=== PATIENT | male | born 1940 | race Caucasian/White ===

== ENCOUNTER 2020-06-03 08:46 | Outpatient (REF) | payer MEDICARE, SELFPAY ==
--- NOTE | 2020-06-03 | US_ITS ---
EXAMINATION: US RETROPERITONEAL LIMITED (AORTA) CLINICAL INFORMATION: Known AAA, stent placement. COMPARISON: Abdominal ultrasound dated 02/10/2016 TECHNIQUE: Carrasco-scale, color Doppler and spectral Doppler evaluation of the abdominal aorta. FINDINGS: The aorta is normal. The measurements of the aorta in maximum AP and transverse dimensions respectively are as follows: Proximal: 2.3 x 2.6 cm. Mid: 2.0 x 2.0 cm. Distal: 1.8 x 2.6 cm. PSV: 99.4 cm/s. The measurements of the common iliac arteries in maximum AP and TRV dimensions are as follows: AP: Right: 1.2 cm. Left: 1.3 cm. TRANS: Right: 1.5 cm. Left: 1.5 cm. IMPRESSION: Mild dilatation of distal abdominal aorta measuring 2.6 cm in transverse dimension. There is a small stent in the distal abdominal aorta which appears patent.
== END 2020-06-03 08:47 | disposition home or self-care (01) ==
LOC: HO.US 08:46
PROVIDERS: PCP Internal Medicine; Visit Provider Internal Medicine
DX: I71.4 Abdominal aortic aneurysm, without rupture (principal); Z95.5 Presence of coronary angioplasty implant and graft
CPT/HCPCS: 76775

== ENCOUNTER → 2020-06-08 08:19 | Outpatient (REF) | payer MEDICARE, SELFPAY ==
--- NOTE | 2020-06-08 08:30 | CA_ITS ---
Acquisition Time: 2020-06-08 08:38:25 Total Exercise Time: 00:05:59 Test Indications: Screening for CAD Medications: ASA ATORVASTATIN DILTIAZEM ER Protocol: RICK Max HR: 137 BPM 98% of Pred: 139 BPM Max BP: 162/084 mmHG Max Work Load: 7.0 METS Exercise stress test using Rick protocol. total of 5 min 59 sec. METs . 7. Pt tolerated well. Denies any anginal sx. EKG with occ. PVC's during exercise without any sx. No ischemic changes seen during exercise or in recovery. Normotensive response to exercise. Test reviewed with Dr. Ruelas. Referred By: Gee Lacey Overread By: Casi Gardner
== END ==
LOC: HO.CARD 08:19
PROVIDERS: Visit Provider Internal Medicine
DX: I71.3 Abdominal aortic aneurysm, ruptured (principal)
CPT/HCPCS: 93017

== ENCOUNTER → 2020-07-14 10:05 | Outpatient (REF) | payer MEDICARE, SELFPAY ==
--- NOTE | 2020-07-14 10:30 | CA_ITS ---
Transthoracic Echocardiogram Patient (Last, First, Middle): Westley Hummel F Gender: Male Date of : 1940 Age: 80 Procedure Date: 07/14/2020 Procedure Type: Transthoracic Echocardiogram Location: OP Height: 175.26 cm Weight: 71.67 kg BSA: 1.87 m2 Heart Rate: bpm BP: 118 / 60 mmHg Wire Preparation Machine Tender: Referring MD: Shakeel Stokes MD Yarn Worker: Shakeel Stokes MD Symptoms: I48.0 PAF I10 HTN Study Quality: Fair ECG Rhythm: Sinus Conclusions: - 1. Normal LV systolic function with impaired relaxation filling pattern 2. Mild aortic regurgitation 3. Normal RV systolic pressure 4. No pericardial effusion Findings Left Ventricle Normal left ventricular size and systolic function. There is mildly increased left ventricular wall thickness. The visually estimated ejection fraction is between 60-65%. Spectral Doppler is indicative of an impaired relaxation filling pattern. E/E prime ratio is between 8 and 15 consistent with indeterminate filling pressures. Right Ventricle Normal right ventricular cavity size and systolic function. Atria Both atria are normal in size. There is no evidence of interatrial shunt. Aortic Valve The aortic valve structure and function is likely normal. There is mild calcification of the aortic valve. There is no aortic valve stenosis. There is mild aortic valve regurgitation. Mitral Valve There is mild anterior and posterior mitral leaflet thickening. There is trace mitral valve regurgitation. There is no mitral valve stenosis. Pulmonic Valve The pulmonic valve was not well visualized. Tricuspid Valve Likely normal tricuspid valve structure and function. There is trace tricuspid valve regurgitation. The right ventricular systolic pressure is normal. The right ventricular systolic pressure is 17 mmHg. Normal right atrial pressure. There is no evidence of pulmonary hypertension. Great Vessels All visible segments of the aorta are normal in size. The pulmonary artery was not well visualized. Venous The inferior vena cava is normal in size and collapses greater than 50% with inspiration. Pericardium/Pleural There is no evidence of pericardial effusion. Prior Study Comparison No previous study in the last 5 years for comparison Measurements 2D Linear Measurements IVSd: 1.24 0.6-0.9/0.6-1.0 cm LVIDd: 3.63 3.9-5.3/4.2-5.9 cm LVIDd Index: 1.94 2.4-3.2/2.2-3.1 cm/m2 LVIDs: 2.16 2.0-3.6 cm LVPWd: 1.26 0.7-1.1 cm Ao Root: 3.50 2.1-3.5 cm LA Diam: 3.50 2.7-3.8/3.0-4.0 cm LAIDs Index: 1.87 1.5-2.3 cm/m2 LV Mass: 189.81 67-162/88-224 g LV Mass Index: 101.51 43-95/49-115 g/m2 LVOT Diam: 2.40 3.0+(-)1.3 cm Mitral Valve MV Pk E: 0.57 MV PK A: 0.78 MV Decel Time: 204.00 E/A: 0.70 E'Lateral: 7.25 E'Medial: 5.22 E/E' Med: 10.90 E/E' Lat: 7.80 PHT: 60.00 MVA PHT: 3.67 Decel Bullock: 2.78 Aortic Valve AoV Pk Sean: 1.55 AoV Mn Sean: 1.12 AoV VTI: 0.34 AoV Pk Grad: 10.00 Aov Mn Grad: 6.00 SONA Cont.VTI: 3.87 LVOT LVOT Pk Sean: 1.30 LVOT Mn Sean: 0.83 LVOT VTI: 0.29 LVOT Pk Grad: 7.00 LVOT Mn Grad: 3.00 LVOT Diam: 2.40 LVOT Area: 4.52 Diastolic Function MV Pk E: 0.57 MV Pk A: 0.78 E/A: 0.70 E'Medial: 5.22 E/E' Med: 10.90 E' Laterial: 7.25 E/E' Lat: 7.80 Tricuspid Valve TR Pk Sean: 1.86 TR Pk Grad: 14.00 RA Press: 3.00 RVSP: 17.00 Great Vessels Aorta Ao Root-2D: 3.50 2.0-3.7 cm Pulmonary Valve PV Pk Sean: 0.84 Peak PV Grad: 3.00 Updated in Other Vendor System with Status of Final Shakeel Stokes MD electronically signed on 07/15/2020 4:30:28 PM with status of Final
== END ==
LOC: HO.CARD 10:05
PROVIDERS: Visit Provider Internal Medicine Cardiovascular Disease
DX: I48.0 Paroxysmal atrial fibrillation (principal); I10 Essential (primary) hypertension
CPT/HCPCS: 93306

== ENCOUNTER 2020-08-24 10:40 | Outpatient (REF) | payer MEDICARE, SELFPAY ==
[2020-08-24 14:32] LABS: Estimated Average Glucose 111 mg/dL; Hemoglobin A1c % 5.5 %
[2020-08-24 14:35] LABS: Alanine Aminotransferase 18 U/L (0-40); Albumin Level 4.5 g/dL (3.5-5.0); Alkaline Phosphatase 66 U/L (39-117); Aspartate Amino Transferase 20 U/L (5-37); Bilirubin Direct 0.3 mg/dL (0.0-0.5); Bilirubin Total 0.7 mg/dL (0.0-1.0); Cholesterol 144 mg/dL; Glucose Fasting 98 mg/dL (60-99); HDL Cholesterol 39 mg/dL; LDL Cholesterol Calculated 85 mg/dl; Total Protein 7.7 g/dL (6.5-8.0); Triglycerides 100 mg/dL
[2020-08-24 16:52] LABS: Reflex LDLD? No
== END 2020-08-24 10:41 | disposition home or self-care (01) ==
LOC: HO.WFDLDS 10:40
PROVIDERS: Visit Provider Internal Medicine
DX: I25.10 Atherosclerotic heart disease of native coronary artery without angina pectoris (principal); R73.09 Other abnormal glucose; I10 Essential (primary) hypertension; E78.00 Pure hypercholesterolemia, unspecified; Z85.46 Personal history of malignant neoplasm of prostate
CPT/HCPCS: 36415; 80061; 80076; 82947; 83036

== ENCOUNTER → 2020-09-22 14:19 | Outpatient (BNVA) | payer MEDICARE, SELFPAY | PROVIDERS: PCP Internal Medicine; Visit Provider Internal Medicine Cardiovascular Disease | DX: Z13.89 Encounter for screening for other disorder (principal) | CPT/HCPCS: Q3014 ==

== ENCOUNTER 2021-03-02 10:41 | Outpatient (REF) | payer MEDICARE, SELFPAY ==
[2021-03-02 10:44] LABS: MANUAL DIFF FLAG NO
[2021-03-02 11:12] LABS: Basophils Percent Auto 0.5 % (0-2); Eosinophils Absolute Auto 0.2 X10*3/uL (0.0-0.4); Eosinophils Percent Auto 4.8 % (0-4); Hematocrit 40.5 % (42-52); Imm Gran Abs Auto 0.02 X10*3/uL (0.00-0.03); Imm Gran Pct Auto 0.5 % (0.0-0.4); Lymphocytes Absolute Auto 1.3 X10*3/uL (1.2-4.9); Lymphocytes Percent Auto 29.2 % (20-40); Mean Corpuscular HGB Conc 32.1 g/dl (31.0-36.0); Mean Corpuscular Hemoglobin 30.2 pg (27.0-33.0); Mean Corpuscular Volume 94.2 fL (80-98); Mean Platelet Volume 9.9 fL (9.4-12.4); Monocytes Absolute Auto 0.4 X10*3/uL (0.1-1.2); Monocytes Percent Auto 9.1 % (2-11); Neutrophils Absolute Auto 2.5 X10*3/uL (2.0-8.3); Neutrophils Percent Auto 55.9 % (45-73); Platelet Count 158 X10*3/uL (160-400); Red Cell Distribution Width 12.8 % (11.0-16.0); White Blood Count 4.4 X10*3/uL (4.8-10.8)
[2021-03-02 11:22] LABS: Estimated Average Glucose 111 mg/dL; Hemoglobin A1c % 5.5 %
[2021-03-02 11:23] LABS: Glucose Urine UA NEG (NEG); Leukocyte Esterase Urine NEG (NEG); Nitrite Urine NEG (NEG); PH 6.5 (5.0-8.0); Specific Gravity - Urine 1.015 (1.005-1.025); Urine Blood NEG (NEG); Urine Ketones NEG (NEG); Urine Protein TRACE MG/DL (NEG-TRACE)
[2021-03-02 11:26] LABS: Appearance Urine CLEAR; Color Urine YELLOW
[2021-03-02 11:29] LABS: Alanine Aminotransferase 11 U/L (0-40); Albumin Level 4.2 g/dL (3.5-5.0); Alkaline Phosphatase 61 U/L (39-117); Anion Gap 13 (12-20); Aspartate Amino Transferase 19 U/L (5-37); Bilirubin Total 0.9 mg/dL (0.0-1.0); Blood Urea Nitrogen 20 mg/dL (9-16); Calcium 8.9 mg/dL (8.4-10.2); Carbon Dioxide 26 mmol/L (22-29); Chloride 103 mmol/L (96-108); Cholesterol 124 mg/dL; Estimated Glomerular Filt Rate 43; Glucose Fasting 92 mg/dL (60-99); HDL Cholesterol 37 mg/dL; LDL Cholesterol Calculated 66 mg/dl; Potassium 4.4 mmol/L (3.3-5.1); Sodium 138 mmol/L (135-145); Total Protein 7.2 g/dL (6.5-8.0); Triglycerides 108 mg/dL
[2021-03-02 11:48] LABS: Creatinine Urine 121.91 mg/dL; Microalbum/Creatinine Ratio Ur 17.2 ug/mg cr
[2021-03-02 11:56] LABS: Reflex LDLD? No
== END 2021-03-02 10:42 | disposition home or self-care (01) ==
LOC: HO.LNP 10:41
PROVIDERS: Visit Provider Internal Medicine
DX: R73.09 Other abnormal glucose (principal); E78.00 Pure hypercholesterolemia, unspecified; I10 Essential (primary) hypertension; E87.1 Hypo-osmolality and hyponatremia; R79.9 Abnormal finding of blood chemistry, unspecified; Z85.46 Personal history of malignant neoplasm of prostate
CPT/HCPCS: 80053; 80061; 81003; 82043; 83036; 84153; 85025

== ENCOUNTER 2021-08-23 10:16 | Outpatient (REF) | payer MEDICARE, SELFPAY ==
--- NOTE | ~2021-08-23 | US_ITS ---
EXAMINATION: US RETROPERITONEAL LIMITED (RENAL ONLY) CLINICAL INFORMATION: Kidney mass. COMPARISON: Ultrasound aorta 06/03/2020. Abdominal ultrasound 02/10/2016 TECHNIQUE: Real-time imaging of the kidneys. FINDINGS: RIGHT KIDNEY: 11.0 x 4.7 x 5.0 cm (SAG x AP x TRV). A lower pole anechoic cyst measures 1.5 cm. An interpolar anechoic cyst measures 3.0 cm. An upper pole anechoic cyst measures 1.2 cm. Color Doppler showed no abnormal vascular flow. No hydronephrosis or nephrolithiasis. LEFT KIDNEY: 9.4 x 4.7 x 4.6 cm (SAG x AP x TRV). An interpolar anechoic cyst measures 5.6 cm. No hydronephrosis or nephrolithiasis. US/US renal BI IMPRESSION: Bilateral renal cysts demonstrate benign features.
== END 2021-08-23 10:17 | disposition home or self-care (01) ==
LOC: HO.HMGCX 10:16
PROVIDERS: PCP Internal Medicine; Visit Provider Internal Medicine
DX: N28.89 Other specified disorders of kidney and ureter (principal)
CPT/HCPCS: 76775

== ENCOUNTER 2021-09-03 10:06 | Outpatient (REF) | payer MEDICARE, SELFPAY ==
[2021-09-03 10:35] LABS: Alanine Aminotransferase 17 U/L (0-40); Albumin Level 4.2 g/dL (3.5-5.0); Alkaline Phosphatase 60 U/L (39-117); Aspartate Amino Transferase 20 U/L (5-37); Bilirubin Direct 0.3 mg/dL (0.0-0.5); Bilirubin Total 0.5 mg/dL (0.0-1.0); Cholesterol 135 mg/dL; Glucose Fasting 92 mg/dL (60-99); HDL Cholesterol 37 mg/dL; LDL Cholesterol Calculated 72 mg/dl; Total Protein 7.3 g/dL (6.5-8.0); Triglycerides 134 mg/dL
[2021-09-03 10:36] LABS: Estimated Average Glucose 111 mg/dL; Hemoglobin A1c % 5.5 %
[2021-09-03 11:55] LABS: Reflex LDLD? No
== END 2021-09-03 10:07 | disposition home or self-care (01) ==
LOC: HO.LNP 10:06
PROVIDERS: Visit Provider Internal Medicine
DX: E78.00 Pure hypercholesterolemia, unspecified (principal); R73.03 Prediabetes
CPT/HCPCS: 80061; 80076; 82947; 83036

== ENCOUNTER → 2021-09-27 14:08 | Outpatient (BNVA) | payer MEDICARE, SELFPAY | PROVIDERS: PCP Internal Medicine; Referring Provider Internal Medicine; Visit Provider Internal Medicine Cardiovascular Disease | DX: I48.0 Paroxysmal atrial fibrillation (principal); I25.10 Atherosclerotic heart disease of native coronary artery without angina pectoris | CPT/HCPCS: 99212 ==

== ENCOUNTER 2022-03-04 10:38 | Outpatient (REF) | payer MEDICARE, SELFPAY ==
[2022-03-04 10:42] LABS: MANUAL DIFF FLAG NO
[2022-03-04 11:15] LABS: Basophils Percent Auto 0.4 % (0-2); Eosinophils Absolute Auto 0.3 X10*3/uL (0.0-0.4); Eosinophils Percent Auto 5.1 % (0-4); Hematocrit 41.6 % (42.0-52.0); Hemoglobin 13.6 g/dl (14.0-18.0); Imm Gran Abs Auto 0.04 X10*3/uL (0.00-0.03); Imm Gran Pct Auto 0.8 % (0.0-0.4); Lymphocytes Percent Auto 39.7 % (20-40); Mean Corpuscular HGB Conc 32.7 g/dl (31.0-36.0); Mean Corpuscular Hemoglobin 31.1 pg (27.0-33.0); Mean Platelet Volume 9.9 fL (9.4-12.4); Monocytes Absolute Auto 0.4 X10*3/uL (0.1-1.2); Monocytes Percent Auto 8.6 % (2-11); Neutrophils Absolute Auto 2.2 x10*3/uL (2.0-8.3); Neutrophils Percent Auto 45.4 % (45-73); Platelet Count 158 X10*3/uL (160-400); Red Blood Count 4.38 X10*6/uL (4.60-5.80); Red Cell Distribution Width 12.6 % (11.0-16.0); White Blood Count 4.9 X10*3/uL (4.8-10.8)
[2022-03-04 11:25] LABS: Appearance Urine CLEAR; Color Urine YELLOW; Glucose Urine UA NEG (NEG); Leukocyte Esterase Urine NEG (NEG); Nitrite Urine NEG (NEG); PH 5.5 (5.0-8.0); Specific Gravity - Urine 1.025 (1.005-1.025); Urine Blood TRACE (NEG); Urine Ketones NEG (NEG); Urine Protein 1+ MG/DL (NEG-TRACE)
[2022-03-04 11:28] LABS: Estimated Average Glucose 111 mg/dL; Hemoglobin A1c % 5.5 %
[2022-03-04 12:00] LABS: Alanine Aminotransferase 17 U/L (0-40); Albumin Level 4.4 g/dL (3.5-5.0); Alkaline Phosphatase 63 U/L (39-117); Anion Gap 13 (12-20); Aspartate Amino Transferase 22 U/L (5-37); Bilirubin Total 0.8 mg/dL (0.0-1.0); Blood Urea Nitrogen 29 mg/dL (9-16); Carbon Dioxide 26 mmol/L (22-29); Chloride 103 mmol/L (96-108); Cholesterol 144 mg/dL; Estimated Glomerular Filt Rate 40; Glucose Fasting 84 mg/dL (60-99); HDL Cholesterol 34 mg/dL; LDL Cholesterol Calculated 82 mg/dl; Sodium 137 mmol/L (135-145); Total Protein 7.3 g/dL (6.5-8.0); Triglycerides 144 mg/dL
[2022-03-04 12:08] LABS: Microalbum/Creatinine Ratio Ur 14.3 ug/mg cr; PSA,Total (Free>4and<10) 1.28 ng/mL (0.00-4.00)
[2022-03-04 12:42] LABS: RBC Urine 0 /HPF (0); WBC Urine 0 /HPF (0-4)
== END 2022-03-04 10:39 | disposition home or self-care (01) ==
LOC: HO.LNP 10:38
PROVIDERS: Visit Provider Internal Medicine
DX: Z12.5 Encounter for screening for malignant neoplasm of prostate (principal); R73.03 Prediabetes; I10 Essential (primary) hypertension; E78.00 Pure hypercholesterolemia, unspecified; D69.6 Thrombocytopenia, unspecified; Z85.46 Personal history of malignant neoplasm of prostate
CPT/HCPCS: 80053; 80061; 81001; 82043; 83036; 84153; 85025

== ENCOUNTER 2022-05-12 11:20 | Outpatient (REF) | payer MEDICARE, SELFPAY ==
[2022-05-12 12:59] LABS: Blood Urea Nitrogen 25 mg/dL (9-16); Estimated Glomerular Filt Rate 41
== END 2022-05-12 11:21 | disposition home or self-care (01) ==
LOC: HO.LNP 11:20
PROVIDERS: Visit Provider Internal Medicine
DX: R79.9 Abnormal finding of blood chemistry, unspecified (principal)
CPT/HCPCS: 82565; 84520

== ENCOUNTER 2022-07-01 10:52 | Outpatient (REF) | payer MEDICARE, SELFPAY ==
[2022-07-01 11:24] LABS: Blood Urea Nitrogen 25 mg/dL (9-16); Estimated Glomerular Filt Rate 41
== END 2022-07-01 10:53 | disposition home or self-care (01) ==
LOC: HO.LNP 10:52
PROVIDERS: Visit Provider Internal Medicine
DX: R79.9 Abnormal finding of blood chemistry, unspecified (principal); I10 Essential (primary) hypertension
CPT/HCPCS: 82565; 84520

== ENCOUNTER 2022-09-09 11:05 | Outpatient (REF) | payer MEDICARE, SELFPAY ==
[2022-09-09 12:40] LABS: Estimated Average Glucose 111 mg/dL; Hemoglobin A1c % 5.5 %
[2022-09-09 12:44] LABS: Alanine Aminotransferase 15 U/L (0-40); Albumin Level 4.3 g/dL (3.5-5.0); Alkaline Phosphatase 62 U/L (39-117); Aspartate Amino Transferase 22 U/L (5-37); Bilirubin Direct 0.2 mg/dL (0.0-0.5); Bilirubin Total 0.8 mg/dL (0.0-1.0); Cholesterol 150 mg/dL; HDL Cholesterol 35 mg/dL; LDL Cholesterol Calculated 93 mg/dl; Total Protein 7.3 g/dL (6.5-8.0); Triglycerides 114 mg/dL
[2022-09-09 14:23] LABS: Reflex LDLD? No
== END 2022-09-09 11:06 | disposition home or self-care (01) ==
LOC: HO.LNP 11:05
PROVIDERS: Visit Provider Internal Medicine
DX: E78.00 Pure hypercholesterolemia, unspecified (principal); R73.09 Other abnormal glucose
CPT/HCPCS: 80061; 80076; 83036

== ENCOUNTER → 2022-09-29 08:32 | Outpatient (BNVA) | payer MEDICARE, SELFPAY | PROVIDERS: PCP Internal Medicine; Referring Provider Internal Medicine; Visit Provider Internal Medicine Cardiovascular Disease | DX: I48.0 Paroxysmal atrial fibrillation (principal); I25.10 Atherosclerotic heart disease of native coronary artery without angina pectoris | CPT/HCPCS: 93005; 99212 ==

== ENCOUNTER 2023-03-07 11:02 | Outpatient (REF) | payer MEDICARE, SELFPAY ==
[2023-03-07 11:12] LABS: MANUAL DIFF FLAG NO
[2023-03-07 11:20] LABS: Appearance Urine Clear; Color Urine Yellow; Glucose Urine UA Negative (Negative); Leukocyte Esterase Urine Negative (Negative); Nitrite Urine Negative (Negative); Specific Gravity - Urine 1.015 (1.005-1.025); UMIC TRIGGER UACC YES; Urine Blood Negative (Negative); Urine Ketones Negative (Negative); Urine Protein 30 (1+) mg/dL (Neg-Trace)
[2023-03-07 11:23] LABS: Bacteria Urine None Seen (None Seen); RBC Urine 0-2 /HPF (0-2); Squamous Epithelial Cell Urine 0-2 /HPF (0-2); WBC Urine 0-5 /HPF (0-5)
[2023-03-07 11:35] LABS: Basophils Percent Auto 0.8 % (0-2); Eosinophils Absolute Auto 0.3 X10*3/uL (0.0-0.4); Eosinophils Percent Auto 7.1 % (0-4); Hematocrit 40.9 % (42.0-52.0); Hemoglobin 13.3 g/dl (14.0-18.0); Imm Gran Abs Auto 0.02 X10*3/uL (0.00-0.03); Imm Gran Pct Auto 0.5 % (0.0-0.4); Lymphocytes Absolute Auto 1.4 X10*3/uL (1.2-4.9); Lymphocytes Percent Auto 37.7 % (20-40); Mean Corpuscular HGB Conc 32.5 g/dl (31.0-36.0); Mean Corpuscular Hemoglobin 31.3 pg (27.0-33.0); Mean Corpuscular Volume 96.2 fL (80.0-98.0); Mean Platelet Volume 9.6 fL (9.4-12.4); Monocytes Absolute Auto 0.4 X10*3/uL (0.1-1.2); Monocytes Percent Auto 11.1 % (2-11); Neutrophils Absolute Auto 1.6 x10*3/uL (2.0-8.3); Neutrophils Percent Auto 42.8 % (45-73); Platelet Count 161 X10*3/uL (160-400); Red Blood Count 4.25 X10*6/uL (4.60-5.80); White Blood Count 3.8 X10*3/uL (4.8-10.8)
[2023-03-07 11:43] LABS: Estimated Average Glucose 105 mg/dL; Hemoglobin A1c % 5.3 %
[2023-03-07 12:29] LABS: Alanine Aminotransferase 17 U/L (0-40); Albumin Level 4.3 g/dL (3.5-5.0); Alkaline Phosphatase 68 U/L (39-117); Anion Gap 10 (12-20); Aspartate Amino Transferase 22 U/L (5-37); Bilirubin Total 0.6 mg/dL (0.0-1.0); Blood Urea Nitrogen 22 mg/dL (9-16); Calcium 9.6 mg/dL (8.4-10.2); Carbon Dioxide 30 mmol/L (22-29); Chloride 103 mmol/L (96-108); Cholesterol 135 mg/dL; Estimated Glomerular Filt Rate 41; Glucose Fasting 90 mg/dL (60-99); HDL Cholesterol 34 mg/dL; LDL Cholesterol Calculated 74 mg/dl; Potassium 4.8 mmol/L (3.3-5.1); Sodium 138 mmol/L (135-145); Total Protein 7.6 g/dL (6.5-8.0); Triglycerides 137 mg/dL
[2023-03-07 12:45] LABS: Creatinine Urine 99.35 mg/dL; Microalbum/Creatinine Ratio Ur 24.1 ug/mg cr
[2023-03-07 12:52] LABS: PSA,Total (Free>4and<10) 2.07 ng/mL (0.00-4.00)
== END 2023-03-07 11:03 | disposition home or self-care (01) ==
LOC: HO.LNP 11:02
PROVIDERS: Visit Provider Internal Medicine
DX: Z12.5 Encounter for screening for malignant neoplasm of prostate (principal); I10 Essential (primary) hypertension; E78.00 Pure hypercholesterolemia, unspecified; D69.6 Thrombocytopenia, unspecified; R73.03 Prediabetes
CPT/HCPCS: 80053; 80061; 81001; 82043; 83036; 84153; 85025

== ENCOUNTER 2023-04-10 07:30 | Outpatient (REF) | payer MEDICARE, SELFPAY ==
[2023-04-10 10:43] LABS: MANUAL DIFF FLAG NO
[2023-04-10 11:14] LABS: Basophils Percent Auto 0.6 % (0-2); Eosinophils Absolute Auto 0.3 X10*3/uL (0.0-0.4); Eosinophils Percent Auto 6.9 % (0-4); Hematocrit 38.1 % (42.0-52.0); Hemoglobin 12.7 g/dl (14.0-18.0); Imm Gran Abs Auto 0.02 X10*3/uL (0.00-0.03); Imm Gran Pct Auto 0.4 % (0.0-0.4); Lymphocytes Absolute Auto 1.4 X10*3/uL (1.2-4.9); Lymphocytes Percent Auto 30.8 % (20-40); Mean Corpuscular HGB Conc 33.3 g/dl (31.0-36.0); Mean Corpuscular Hemoglobin 31.7 pg (27.0-33.0); Mean Platelet Volume 9.6 fL (9.4-12.4); Monocytes Absolute Auto 0.5 X10*3/uL (0.1-1.2); Monocytes Percent Auto 9.9 % (2-11); Neutrophils Absolute Auto 2.4 x10*3/uL (2.0-8.3); Neutrophils Percent Auto 51.4 % (45-73); Platelet Count 158 X10*3/uL (160-400); Red Blood Count 4.01 X10*6/uL (4.60-5.80); Red Cell Distribution Width 12.9 % (11.0-16.0); White Blood Count 4.6 X10*3/uL (4.8-10.8)
== END 2023-04-10 07:31 | disposition home or self-care (01) ==
LOC: HO.LNP 07:30
PROVIDERS: Visit Provider Internal Medicine
DX: D70.9 Neutropenia, unspecified (principal)
CPT/HCPCS: 85025

== ENCOUNTER 2023-05-20 14:28 | Outpatient (REF) | payer MEDICARE, SELFPAY | END 2023-05-20 14:29 | disposition home or self-care (01) | LOC: HO.MRI 14:28 | PROVIDERS: PCP Internal Medicine; Visit Provider Internal Medicine | DX: H93.11 Tinnitus, right ear (principal) | CPT/HCPCS: 70544 ==

== ENCOUNTER 2023-09-05 12:21 | Outpatient (REF) | payer MEDICARE, SELFPAY ==
[2023-09-05 13:40] LABS: Alanine Aminotransferase 19 U/L (0-40); Albumin Level 4.3 g/dL (3.5-5.0); Alkaline Phosphatase 62 U/L (39-117); Aspartate Amino Transferase 32 U/L (5-37); Bilirubin Direct 0.2 mg/dL (0.0-0.5); Bilirubin Total 0.6 mg/dL (0.0-1.0); Cholesterol 127 mg/dL (<200); Glucose Fasting 82 mg/dL (60-99); HDL Cholesterol 37 mg/dL (>40); LDL Cholesterol Calculated 67 mg/dL (<100); Total Protein 8.1 g/dL (6.5-8.0); Triglycerides 116 mg/dL (<150)
[2023-09-05 15:01] LABS: Reflex LDLD? No
== END 2023-09-05 12:22 | disposition home or self-care (01) ==
LOC: HO.LNP 12:21
PROVIDERS: Visit Provider Internal Medicine
DX: R73.03 Prediabetes (principal); E78.00 Pure hypercholesterolemia, unspecified
CPT/HCPCS: 80061; 80076; 82947

== ENCOUNTER 2023-09-07 08:36 | Outpatient (REF) | payer MEDICARE, SELFPAY ==
[2023-09-08 11:59] LABS: Free Prostate Spec Ag 0.2 ng/mL; Percent Free Prostate Spec Ag 8 % (calc) (>25); Prostate Specific Ag Total 2.5 ng/mL (< OR = 4.0)
== END 2023-09-07 08:37 | disposition home or self-care (01) ==
LOC: HO.WFDLDS 08:36
PROVIDERS: Visit Provider Urology
DX: C61 Malignant neoplasm of prostate (principal)
CPT/HCPCS: 36415; 84154

== ENCOUNTER 2023-10-09 08:19 | Outpatient (AMB) | payer MEDICARE, SELFPAY ==
--- NOTE | 2023-10-09 08:25 | A.OFFVIS_ITS ---
Intake Vital Signs 10/09/23 08:25 10/09/23 08:34 Height 5 ft 8.5 in Weight 171 lb 1.259 oz BP 120/78 Blood Pressure Location Lt brachial Lt brachial Position Sitting Sitting Pulse 81 Pulse Source Pulse Oximeter Intake Visit Reasons: 1 YEAR FOLLOW UP Allergies No Known Allergies Allergy (Unverified 04/30/20 15:32) Medication List - Last Reconciled 10/09/23 by Shakeel Stokes MD aspirin (Adult Low Dose Aspirin) 81 mg PO DAILY atorvastatin 20 mg PO DAILY 90 days diltiazem HCl 180 mg PO DAILY HPI HPI Comments History of Present Illness Details Westley comes for follow-up. No cardiovascular symptoms. Remains active in day-to-day life has some balance issues. Has followed up with vascular surgery about his AAA repair and has been told that follow-up will be every year now. He does get chest pain but this is not exertional. He experiences this chest pain usually when he is hungry/misses a meal or after eating sometimes. Denies any prolonged palpitation irregular heartbeat. No heart failure symptoms. Takes all his medications. Last LDL is well optimized at 67 mg/dL. [facility]LY [facility] Medical History CAD (coronary artery disease) Paroxysmal atrial fibrillation HTN (hypertension) Surgical History Hx of aortic aneurysm repair Hx of cardiac cath Hx of prostatectomy History of hip surgery Family History Father No problems noted. Mother Cancer Review of Systems Const Denies chills, Denies fatigue, Denies fever(s), Denies frequent falls, Denies weakness, Denies weight gain and Denies weight loss ENT Denies dizziness Card Denies chest pain, Denies leg edema, Denies lightheadedness, Denies palpitations, Denies dyspnea, Denies dyspnea on exertion, Denies orthopnea and Denies other (loss of consciousness) Resp Denies cough, Denies dyspnea and Denies dyspnea on exertion GI Denies hematochezia and Denies change in stool character Musc Denies abnormal gait, Denies muscle weakness, Denies numbness, Denies radiating pain into limb and Denies tingling Neuro Denies abnormal gait, Denies dizziness, Denies frequent falls, Denies numbness, Denies tingling and Denies weakness Endo Denies fatigue and Denies palpitations Physical Exam Vital Signs: Last Vital Signs Pulse 81 10/09/23 08:34 BP 120/78 10/09/23 08:34 Const General: cooperative, comfortable, no acute distress, alert, awake and Physically active Nutritional Appearance: average body habitus Orientation/consciousness: patient oriented x3 Limitations: no limitations Neck Neck: Yes trachea midline, Yes supple and Yes no JVD Resp Effort & Inspection: normal respiratory effort Auscultation: clear to auscultation bilaterally Cardio Jugular venous distension: no JVD Palpation: normal PMI Rate: regular rate Rhythm: regular rhythm Heart sounds: S1 normal heart sound present, S2 normal heart sound present, no click, no gallops, no murmurs and no rubs GI Auscultation: normal bowel sounds Skin General skin exam: no rashes or lesions noted Neuro General: patient oriented x3 and no focal motor deficits Extrem General: Yes no clubbing, cyanosis or edema Office Procedures EKG Details: EKG shows normal sinus rhythm with first-degree AV block with normal EKG [id number], Complete Assessment & Plan Assessment & Plan (1) Paroxysmal atrial fibrillation: Code(s): I48.0 - Paroxysmal atrial fibrillation Plan: Paroxysmal atrial fibrillation without any obvious recurrence at this point time. Continue current Cardizem therapy. Continue to avoid stimulants. Advised to call me with any new symptoms. Continue pursue rhythm control approach. Discussed about oral anticoagulation which she currently does not want to pursue. (2) CAD (coronary artery disease): Code(s): I25.10 - Atherosclerotic heart disease of [place] coronary artery without angina pectoris Plan: CAD as well as abdominal aortic aneurysm status post repair. Continue lifelong aspirin therapy. Continue high-intensity statin therapy. LDL is currently well optimized. Blood pressure is also well optimized on current Cardizem therapy. Continue the same. Importance of regular physical activity was discussed. Follow up in the clinic in 1 year's time, sooner p.r.n.. Thank you for allowing me to partake in his care Coding Level of Care Code Est Pt Level 4 (49421) Diagnoses Paroxysmal atrial fibrillation I48.0 CAD (coronary artery disease) I25.10 CPT Codes EKG - CPT: 30786-[id number], Complete ([id number])
[2023-10-09 08:34] VITALS: BP 120/78; PULSE 81
== END 2023-10-09 08:49 | disposition home or self-care (01) ==
PROVIDERS: PCP Internal Medicine; Visit Provider Internal Medicine Cardiovascular Disease
DX: I48.0 Paroxysmal atrial fibrillation (principal); I25.10 Atherosclerotic heart disease of native coronary artery without angina pectoris
CPT/HCPCS: 93010; 99214

== ENCOUNTER → 2023-10-09 08:19 | Outpatient (BNVA) | payer MEDICARE, SELFPAY | PROVIDERS: Visit Provider Internal Medicine Cardiovascular Disease | DX: I48.0 Paroxysmal atrial fibrillation (principal); I25.10 Atherosclerotic heart disease of native coronary artery without angina pectoris | CPT/HCPCS: 93005; 99212 ==

== ENCOUNTER 2024-03-07 11:12 | Outpatient (REF) | payer MEDICARE, SELFPAY ==
[2024-03-07 11:20] LABS: MANUAL DIFF FLAG NO
[2024-03-07 12:03] LABS: Basophils Percent Auto 0.5 % (0-2); Eosinophils Absolute Auto 0.3 X10*3/uL (0.0-0.4); Eosinophils Percent Auto 7.2 % (0-4); Hematocrit 40.4 % (42.0-52.0); Hemoglobin 13.3 g/dl (14.0-18.0); Imm Gran Abs Auto 0.02 X10*3/uL (0.00-0.03); Imm Gran Pct Auto 0.5 % (0.0-0.4); Lymphocytes Absolute Auto 1.5 X10*3/uL (1.2-4.9); Mean Corpuscular HGB Conc 32.9 g/dl (31.0-36.0); Mean Corpuscular Hemoglobin 31.7 pg (27.0-33.0); Mean Corpuscular Volume 96.2 fL (80.0-98.0); Mean Platelet Volume 9.8 fL (9.4-12.4); Monocytes Absolute Auto 0.4 X10*3/uL (0.1-1.2); Monocytes Percent Auto 10.7 % (2-11); Neutrophils Absolute Auto 1.7 x10*3/uL (2.0-8.3); Neutrophils Percent Auto 43.1 % (45-73); Platelet Count 157 X10*3/uL (160-400); Red Cell Distribution Width 12.8 % (11.0-16.0)
[2024-03-07 12:20] LABS: Appearance Urine Clear; Color Urine Yellow; Glucose Urine UA Negative (Negative); Leukocyte Esterase Urine Negative (Negative); Nitrite Urine Negative (Negative); PH 5.5 (5.0-9.0); UMIC TRIGGER UACC YES; Urine Blood Negative (Negative); Urine Ketones Negative (Negative); Urine Protein 30 (1+) mg/dL (Neg-Trace)
[2024-03-07 12:21] LABS: Estimated Average Glucose 111 mg/dL; Hemoglobin A1c % 5.5 % (<6.0)
[2024-03-07 12:22] LABS: Alanine Aminotransferase 16 U/L (0-40); Albumin Level 4.3 g/dL (3.5-5.0); Alkaline Phosphatase 69 U/L (39-117); Anion Gap 13 (12-20); Aspartate Amino Transferase 23 U/L (5-37); Bilirubin Total 0.5 mg/dL (0.0-1.0); Blood Urea Nitrogen 23 mg/dL (9-16); Calcium 9.8 mg/dL (8.4-10.2); Carbon Dioxide 26 mmol/L (22-29); Chloride 105 mmol/L (96-108); Cholesterol 114 mg/dL (<200); Estimated Glomerular Filt Rate 42; Glucose Fasting 91 mg/dL (60-99); HDL Cholesterol 32 mg/dL (>40); LDL Cholesterol Calculated 53 mg/dL (<100); Potassium 4.7 mmol/L (3.3-5.1); Sodium 139 mmol/L (135-145); Total Protein 7.5 g/dL (6.5-8.0); Triglycerides 147 mg/dL (<150)
[2024-03-07 12:27] LABS: Bacteria Urine None Seen (None Seen); RBC Urine 0-2 /HPF (0-2); Squamous Epithelial Cell Urine 0-2 /HPF (0-2); WBC Urine 0-5 /HPF (0-5)
[2024-03-07 12:34] LABS: PSA,Total (Free>4and<10) 2.77 ng/mL (0.00-4.00)
[2024-03-07 12:39] LABS: Creatinine Urine 111.76 mg/dL; Microalbum/Creatinine Ratio Ur 31.3 ug/mg cr (<30)
== END 2024-03-07 11:13 | disposition home or self-care (01) ==
LOC: HO.LNP 11:12
PROVIDERS: Visit Provider Internal Medicine
DX: R73.09 Other abnormal glucose (principal); I10 Essential (primary) hypertension; E78.00 Pure hypercholesterolemia, unspecified; D69.6 Thrombocytopenia, unspecified; Z12.5 Encounter for screening for malignant neoplasm of prostate
CPT/HCPCS: 80053; 80061; 81001; 82043; 82570; 83036; 84153; 85025

== ENCOUNTER 2024-09-10 10:30 | Outpatient (REF) | payer MEDICARE, SELFPAY ==
[2024-09-10 10:49] LABS: Alanine Aminotransferase 21 U/L (0-40); Albumin Level 4.4 g/dL (3.5-5.0); Alkaline Phosphatase 67 U/L (39-117); Aspartate Amino Transferase 34 U/L (5-37); Bilirubin Direct 0.2 mg/dL (0.0-0.5); Bilirubin Total 0.6 mg/dL (0.0-1.0); Cholesterol 126 mg/dL (<200); Glucose Fasting 89 mg/dL (60-99); HDL Cholesterol 35 mg/dL (>40); LDL Cholesterol Calculated 69 mg/dL (<100); Total Protein 7.9 g/dL (6.5-8.0); Triglycerides 113 mg/dL (<150)
[2024-09-10 10:59] LABS: Estimated Average Glucose 114 mg/dL; Hemoglobin A1C 130.0363 umol/L; Hemoglobin A1c % 5.6 % (<6.0); Total Hemoglobin (HGBA1C) 3406.6399 umol/L
[2024-09-10 11:21] LABS: Reflex LDLD? No
--- OUTSIDE RECORDS SUMMARY | 2024-09-10 11:36 | XMS_ITS ---
Author Organization Gee Lacey MD Address [address] [place], [place] [id number] Care Team Providers Care Registrar Museum Name Role Phone Gee Lacey Primary Care Provider Allergies No Known Allergies REASON FOR VISIT Rash on penis x 5 days Medications Medication SIG (Take, Route, Frequency, Duration) Notes Start Date End Date Status Atorvastatin Calcium 40 MG TAKE 1 TABLET BY MOUTH EVERY DAY FOR 90 DAYS for 90 Active dilTIAZem HCl ER Coated Beads 180 MG TAKE 1 CAPSULE BY MOUTH EVERY DAY for 90 Active CeleBREX 200 MG 1 capsule Orally Onc e a day for 20 days 05/06/2014 Not-Taking ProAir HFA 108 (90 Base) MCG/ACT 2 puffs as needed Inhalation every 4 hrs for 30 days 05/08/2012 Not-Taking Clotrimazole 1 % 1 application Externally Twice a day for 14 days 07/26/2024 Active Aspirin 81 MG 1 tablet Orally Once a day for 30 day(s) Active Problems Problem Type SNOMED Code ICD Code Onset Dates Problem Status W/U Status Risk Notes Problem [id number] Nanci (N48.1) Active confirmed Vital Signs Blood pressure systolic 142 mm Hg 07/26/20 24 Blood pressure diastolic 76 mm Hg 024 Height 68.5 in 07/26/2024 Weight 167 lbs 07/26/2024 BMI 25.02 kg/m2 07/26/2024 Encounters Encounter Location Date Provider Diagnosis Gee Lacey MD [address] [place] [phone] 07/26/2024 Gee Lacey Charlestis N48.1 Assessments Encounter Date Diagnosis (ICD Code) Assessment Notes Treatment Notes Treatment Clinical Notes Section Notes 07/26/2024 Nanci (ICD-10 - N48.1) patient verbalized understanding of medication and directions for use Plan Of Treatment Medication Medication Name Sig Start Date Stop Date Notes Clotrimazole 1 % 1 application Process Improvement Specialist ally Twice a day for 14 days 07/26/2024 Treatment Notes Assessment Notes Balcorneliustis patient verbalized u nderstanding of medication and directions for use Next Appt Details Provider Name:Gee ash, 09/20/2024 09:00:00 AM, [address] [place] [address], [address], [phone], Provider Name:Gee ash, 03/10/2025 07:15:00 AM, [address] [place] [address], [phone], Provider Name:Gee ash, 03/17/2025 09:30:00 AM, [address] [place] [address], [address], [phone], Progress Notes * Westley HUMMEL FDOB:1939 (84 yo M)Acc No.[id number]:07/26/2024 Progress Notes Patient:?Westley Hummel Anjelica Provider:?Gee Lacey MD :1940???Age:84 Y???Sex:Male Saul e:07/26/2024 [facility] Subjective: * Chief Complaints: * ???Rash on penis x 5 days * HPI: ???Symptom(s):? patient is a 84 yo male here with complaint he has rash for 5 days. * ROS:?General/Constitutional:?Denies?Chills.?Denies?Fatigue.?Denies?Fever.?Denies?Headache.?ENT:?Patient denies?decreased sense of smell , any loss of taste , sore throat.?Denies?Sore throat.?Respiratory:?Denies?Cough.?Denies?Shortness of breath at rest.?Denies?Shortness of breath with exertion.?Gastrointestinal:?Denies?Diarrhea.?Denies?Nausea.?Men Only:?Admits?Rash or blisters on penis.?Musculoskeletal:?Patient denies?muscle aches.?Peripheral Vascular:?Patient denies?red and blue toes.? * Medical History:? * Surgical History:? * Hospitalization/Major Diagno stic Procedure:? * Medications:?TakingAspirin 8 1 MG Tablet Chewable 1 tablet Orally Once a dayAtorvastatin Calcium 40 MG Tablet TAKE 1 TABLET BY MOUTH EVERY DAY FOR 90 DAYS dilTIAZem HCl ER Coated Beads 180 MG Capsule Extended Release 24 Hour TAKE 1 CAPSULE BY MOUTH EVERY DAY Taking Aspirin 81 MG Tablet Chewable 1 tablet Orally Once a dayTaking Atorvastatin Calcium 40 MG Tablet TAKE 1 TABLET BY MOUTH EVERY DAY FOR 90 DAYS Taking dilTIAZem HCl ER Coated Beads 180 MG Capsule Extended Release 24 Hour TAKE 1 CAPSULE BY MOUTH EVERY DAY Not-Taking/PRNCeleBREX 200 MG Capsule 1 capsule Orally Once a dayProAir HFA 108 (90 Base) MCG/ACT Aerosol Solution 2 puffs as needed Inhalation every 4 hrsMedication List reviewed and reconciled with the patientNot-Taking/PRN CeleBREX 200 MG Capsule 1 capsule Orally Once a dayNot-Taking/PRN ProAir HFA 108 (90 Base) MCG/ACT Aerosol Solution 2 puffs as needed Inhalation every 4 hrsMedication List reviewed and reconciled with the patient * Allergies:?N.K.D.A.yes[Aller gies Verified] Objective: * Vitals:?Ht: 68.5, Wt:167, BM I:25.02, BP:142/76, Repeat BP:126/76. * Examination: ???General Examination: ?GENERAL APPEARANCE:?well developed, well nourished.?MALE GENITOURINARY:?with a rash under foreskin.? Assessment: * Assessment: 1.?Nanci - N48.1 (Primar y)? Plan: * Treatment: * Procedure Codes:? * * Sign off status: Completed true * Provider:?Gee Lacey MD Date:?1 09/26/2023 Generated for Xavi neely/Olga Lidia/Shaneransmitting on:?09/10/2024 11:36 AM EST History and Physical Notes * HPI (History of Present Illness) Category Sub-Category Detail Notes Category Not es Symptom(s) patient is a 84 yo male here with complaint he has rash for 5 days. Examination Category Sub-Category Detail Notes Category Not es General Examination GENERAL APPEARANCE: well developed , well nourished MALE GENITOURINARY: with a rash under fo reskin
--- OUTSIDE RECORDS SUMMARY | 2024-09-10 11:36 | XMS_ITS ---
Author Organization Gee Lacey MD Address [address] [place] [phone] Care Team Providers Care Emerging Technologies Director Name Role Phone Gee Lacey Primary Care Provider [phone] REASON FOR VISIT flu shot Immunizations Vaccine Route Administration Date Status Comme nts Influenza High Dose IM Intramuscular 05/02/2024 Administer ed Encounters Encounter Location Date Provider Diagnosis Gee Lacey MD [address] [place] [phone] 05/02/2024 Gee Lacey Encounter for immunization Z23 Assessments Encounter Date Diagnosis (ICD Code) Assessment Notes Treatment Notes Treatment Clinical Notes Section Notes 05/02/2024 Encounter for immunization (ICD-10 - Z23) Plan Of Treatment Next Appt Details Provider Name:Gee ash, 09/20/2024 09:00:00 AM, [address], [address], [place], [phone], Provider Name:Gee Aviles Ignacio ier, 03/10/2025 07:15:00 AM, [address] [facility], [address], [place], [phone], Provider Name:Gee Pierre ier, 03/17/2025 09:30:00 AM, [address] [facility], [address], [place], [phone], Progress Notes * Westley HUMMEL FDOB:1939 (84 yo M)Acc No.[id number]:05/02/2024 Progress Note Patient:?Westley HUMMEL Provider:?Gee Lacey MD :1940???Age:84 Y???Sex:Male Saul e:05/02/2024 Address:[address] [place], [place] [phone] Subjective: * Chief Complaints: * ???1. Flu shot. * Medical History:? Objective: * Vitals:? Assessment: * Assessment: 1.?Encounter for immunizatio n - Z23 (Primary)??? Plan: * Treatment: * Immunizations:? Influenza High Dose : 0.5 mL (Dose No:1) (Route: Intramuscular) given by Missy Padilla , Office Staff on Right Deltoid * Procedure Codes:?42415 FLU V ACC PRSV FREE INC ANTIG, G0008 ADMN FLU VAC NO FEE SCHED SAME DAY * * The named appointment provid er may or may not be the originator of this progress note, and it is not deemed complete until electronically signed by the appointment provider. Sign off status: Pending * Provider:?Gee Lacey MD Date:?0 05/02/2024 Generated for Xavi neely/Olga Lidia/Genetitting on:?09/10/2024 11:36 AM EST
--- OUTSIDE RECORDS SUMMARY | 2024-09-10 11:36 | XMS_ITS ---
Author Organization Gee Lacey MD Address [address] [place], [place] [phone] Care Team Providers Care Occupational Medicine Specialist Name Role Phone Gee Lacey Primary Care Provider [phone] Results Component Value Reference Range Notes Liver Panel (Not yet reviewe d by provider) Interpretation: Performing Lab:[facility], [address] [place] [phone] Notes/Report: Bilirubin Total 0.6 0.0-1.0 mg/dL Bilirubin Direct 0.2 0.0-0.5 mg/dL Aspartate Amino Transferase 34 5-37 U/L Alanine Aminotransferase 21 0-40 U/L Total Protein 7.9 6.5-8.0 g/dL Albumin Level 4.4 3.5-5.0 g/dL Alkaline Phosphatase 67 39-117 U/L Glucose Fasting (Not yet rev iewed by provider) Interpretation: Performing Lab:[facility], [address] [place] [phone] Notes/Report: Glucose Fasting 89 60-99 mg/dL Lipid Panel with Reflex (Not yet reviewed by provider) Interpretation: Performing Lab:[facility], [address] [place] [phone] Notes/Report: Triglycerides 113 <150 mg/dL Desirable Triglyceride: less than 150 mg/dL Borderline High Triglyceride 150-199 mg/dL High Triglyceride: 200-499 mg/dL Very High Triglyceride: greater than or equal to 5OO mg/dL Cholesterol 126 <200 mg/dL Desirable Cholesterol: less than 200 mg/dL Borderline High Cholesterol: 200-239 mg/dL High Cholesterol: greater than 239 mg/dL LDL Cholesterol Calculated 69 <100 mg/dL Desirable LDL: less than 100 mg/dL Near Optimal/Above Optimal LDL: 110-129 mg/dL Borderline High LDL: 130-159 mg/dL High LDL: 160-189 mg/dL Very High LDL: greater than or equal to 190 mg/dL HDL Cholesterol 35 >40 mg/dL Desirable HDL: greater than 40 mg/dL Note: This HDL assay may give artificially low results in patients with liver disease. Hemoglobin A1c (Not yet revi ewed by provider) Interpretation: Performing Lab:[facility], [address] [place] [phone] Notes/Report: Hemoglobin A1c % 5.6 <6.0 % Hemoglobin A1C Reference Range Adults: 4.8 - 6.0 % Non diabetic: < 6.0 % Goal: < 7.0 % Additional Action Suggested: > 8.0 % Note: Hemoglobin A1c results are invalid for patients with abnormal amounts of HbF. Blood transfusions may impact the HbA1c concentration in the patient sample. Estimated Average Glucose 114 eAG = Estimated average glucose which is %A1C expressed as average glucose, using the formula of the D4T-Kjlomvq Average Glucose study (ADAG), Diabetes Care, Vol.31,#8, Mar. 2007 REASON FOR VISIT FASTING LIPIDS Encounters Encounter Location Date Provider Diagnosis Gee Lacey MD [address] [place] [address] [address] [place], [place] [phone] 09/10/2024 Gee Lacey Prediabetes R73.09 a nd Pure hypercholesterolemia E78.00 Assessments Encounter Date Diagnosis (ICD Code) Assessment Notes Treatment Notes Treatment Clinical Notes Section Notes 09/10/2024 Prediabetes (ICD-10 - R73.09) 09/10/2024 Pure hypercholesterolemia (ICD-10 - E78.00) Plan Of Treatment Pending Test Test Name Order Date Liver Panel 09/10/2024 Glucose Fasting 09/10/2024 Lipid Panel with Reflex 09/10/2024 Hemoglobin A1c 09/10/2024 Next Appt Details Provider Name:Gee Pierre ier, 09/20/2024 09:00:00 AM, [address] [place] [address], [address], [place], [place], [phone], Provider Name:Gee Pierre ier, 03/10/2025 07:15:00 AM, [address] [place] [address], [address], [place], [place], [phone], Provider Name:Gee Pierre ier, 03/17/2025 09:30:00 AM, [address] [place] [address], [address] [facility], [place], [place], [phone], Progress Notes * Westley HUMMEL FDOB:1939 (84 yo M)Acc No.[id number]:09/10/2024 Progress Note Patient:?Westley HUMMEL Provider:?Gee Lacey MD :1940???Age:84 Y???Sex:Male Saul e:09/10/2024 Address:[address] [place], [place] [phone] Subjective: * Chief Complaints: * ???1. FASTING LIPIDS. * Medical History:? Objective: * Vitals:? Assessment: * Assessment: 1.?Prediabetes - R73.09???2. ?Pure hypercholesterolemia - E78.00??? Plan: * Treatment: 2.?Pure hypercholesterolemia ?LAB: Liver Panel (Collection Date & Time - 09/10/2024 08:00 AM) ?LAB: Glucose Fasting (Collection Date & Time - 09/10/2024 08:00 AM) ?LAB: Lipid Panel with Reflex (Collection Date & Time - 09/10/2024 08:00 AM) ?LAB: Hemoglobin A1c (Collection Date & Time - 09/10/2024 08:00 AM) * Procedure Codes:?82646 VENIP UNCT, ROUTINE* * * The named appointment provid er may or may not be the originator of this progress note, and it is not deemed complete until electronically signed by the appointment provider. Sign off status: Pending * Provider:?Gee Lacey MD Date:?0 09/10/2024 Generated for Xavi neely/Olga Lidia/Genetitting on:?09/10/2024 11:36 AM EST
== END 2024-09-10 10:31 | disposition home or self-care (01) ==
LOC: HO.LNP 10:30
PROVIDERS: Visit Provider Internal Medicine
DX: R73.09 Other abnormal glucose (principal); E78.00 Pure hypercholesterolemia, unspecified
CPT/HCPCS: 80061; 80076; 82947; 83036

== ENCOUNTER 2024-11-13 14:07 | Outpatient (AMB) | payer MEDICARE, SELFPAY ==
[2024-11-13 14:14] VITALS: BP 130/80; PULSE 74; BMI 25.4
--- NOTE | 2024-11-13 14:14 | MHC.OFFVIS ---
Vital Signs 11/13/24 14:14 Height 5 ft 8.5 in Weight 169 lb 12.095 oz BMI 25.4 BP 130/80 Blood Pressure Location Lt brachial Position Sitting Pulse 74 Intake Visit Reasons: r/s 10/10/24 1 yr followup w/ekg Intake Note: 1 year follow-up with ekg feeling good Human Service Worker Required: No Allergies No Known Allergies Allergy (Unverified 04/30/20 15:32) Medication List - Last Reconciled 11/13/24 by Shakeel Stokes MD aspirin (Adult Low Dose Aspirin) 81 mg PO DAILY atorvastatin 40 mg PO DAILY diltiazem HCl CD 180 mg PO DAILY HPI Comments Details: Westley comes for follow-up. He has no new cardiac symptoms at current point time. Remains active around the house. Denies any prolonged palpitation irregular heartbeat. Denies any chest pain or shortness of breath. Denies any lightheadedness, syncope. Takes all his medications. [facility] Medical History CAD (coronary artery disease) Paroxysmal atrial fibrillation HTN (hypertension) Surgical History Hx of aortic aneurysm repair Hx of cardiac cath Hx of prostatectomy History of hip surgery Family History Father No problems noted. Mother Cancer Review of Systems Const Denies chills, Denies fatigue, Denies fever(s), Denies frequent falls, Denies weakness, Denies weight gain and Denies weight loss ENT Denies dizziness Card Denies chest pain, Denies leg edema, Denies lightheadedness, Denies palpitations, Denies dyspnea, Denies dyspnea on exertion, Denies orthopnea and Denies other (loss of consciousness) Resp Denies cough, Denies dyspnea and Denies dyspnea on exertion GI Denies hematochezia and Denies change in stool character Musc Denies abnormal gait, Denies muscle weakness, Denies numbness, Denies radiating pain into limb and Denies tingling Neuro Denies abnormal gait, Denies dizziness, Denies frequent falls, Denies numbness, Denies tingling and Denies weakness Endo Denies fatigue and Denies palpitations Physical Exam Vital Signs: Last Vital Signs Pulse 74 11/13/24 14:14 BP 130/80 11/13/24 14:14 BMI result Body Mass Index 25.4 Const General: cooperative, comfortable, no acute distress, alert, awake and Physically active Nutritional Appearance: average body habitus Orientation/consciousness: patient oriented x3 Limitations: no limitations Neck Neck: Yes trachea midline, Yes supple and Yes no JVD Resp Effort & Inspection: normal respiratory effort Auscultation: clear to auscultation bilaterally Cardio Jugular venous distension: no JVD Palpation: normal PMI Rate: regular rate Rhythm: regular rhythm Heart sounds: S1 normal heart sound present, S2 normal heart sound present, no click, no gallops, no murmurs and no rubs GI Auscultation: normal bowel sounds Skin General skin exam: no rashes or lesions noted Neuro General: patient oriented x3 and no focal motor deficits Extrem General: Yes no clubbing, cyanosis or edema Office Procedures EKG Details: EKG shows normal sinus rhythm first-degree AV block with minimal voltage criteria for LVH otherwise no acute ST T wave changes 79824-Tickgdplhivlbbrct, Complete Assessment & Plan Assessment & Plan (1) Paroxysmal atrial fibrillation: Code(s): I48.0 - Paroxysmal atrial fibrillation Category: Medical Plan: Paroxysmal atrial fibrillation without any obvious clinical recurrence at this point time. Continue rhythm control approach. Continue go on Cardizem therapy. No indication for antiarrhythmic drug therapy. He declines use of oral anticoagulation therapy. Currently on aspirin therapy only. (2) CAD (coronary artery disease): Code(s): I25.10 - Atherosclerotic heart disease of [place] coronary artery without angina pectoris Category: Medical Plan: Prior history of vascular disease with abdominal aortic aneurysm as well as CAD. Nonobstructive. No symptoms suggestive of angina at this point time. No further workup is indicated. Continue aggressive blood pressure control which is currently well optimized. Continue high-intensity statin therapy as well as low-dose aspirin therapy. Follow up in the clinic in 1 year's time, sooner p.r.n.. Thank you for allowing me to partake in his care Coding Level of Care Code Est Pt Level 4 (51393) Complex EM visit Add On G2211 Diagnoses Paroxysmal atrial fibrillation I48.0 CAD (coronary artery disease) I25.10 CPT Codes EKG - CPT: 21108-Vfoelwzbsoexuqbnv, Complete ([id number])
--- OUTSIDE RECORDS SUMMARY | 2024-11-13 16:51 | XMS_ITS ---
Author Organization Gee Lacey MD Address [address] [place], [place] [id number] Care Team Providers Care Outsole Splicer Name Role Phone Gee Lacey Primary Care Provider Results Component Value Reference Range Notes Liver Panel Reviewed date:09/10/2024 12:31:56 PM Interpretation: Performing Lab:[facility], [address] [place] [phone] Notes/Report: Bilirubin Total 0.6 0.0-1.0 mg/dL Bilirubin Direct 0.2 0.0-0.5 mg/dL Aspartate Amino Transferase 34 5-37 U/L Alanine Aminotransferase 21 0-40 U/L Total Protein 7.9 6.5-8.0 g/dL Albumin Level 4.4 3.5-5.0 g/dL Alkaline Phosphatase 67 39-117 U/L Glucose Fasting Reviewed date:09/10/2024 01:27:22 PM Interpretation: Performing Lab:[facility], [address] [place] [phone] Notes/Report: Glucose Fasting 89 60-99 mg/dL Lipid Panel with Reflex Reviewed date:09/10/2024 12:33:29 PM Interpretation: Performing Lab:[facility], [address] [place] [phone] Notes/Report: Triglycerides 113 <150 mg/dL Desirable Triglyceride: [...] in patients with liver disease. Hemoglobin A1c Reviewed date:09/10/2024 12:32:13 PM Interpretation: Performing Lab:[facility], [address] [place] [phone] Notes/Report: Hemoglobin A1c % 5.6 <6.0 % [...] average glucose, using the formula of the F8I-Cvialpq Average Glucose study (ADAG), Diabetes Care, Vol.31,#8, Mar. 2007 REASON FOR VISIT FASTING LIPIDS Encounters Encounter Location Date Provider Diagnosis Gee Lacey MD [address] [place] [address] [address] [place], [place] [phone] 09/10/2024 Gee Lacey Prediabetes R73.09 a nd Pure hypercholesterolemia E78.00 Assessments Encounter Date Diagnosis (ICD Code) Assessment Notes Treatment Notes Treatment Clinical Notes Section Notes 09/10/2024 Prediabetes (ICD-10 - R73.09) 09/10/2024 Pure hypercholesterolemia (ICD-10 - E78.00) Plan Of Treatment Next Appt Details Provider Name:Gee Pierre ier, 03/10/2025 07:15:00 AM, [address], [address], [place], [place], [phone], Provider Name:Gee Pierre ier, 03/24/2025 10:30:00 AM, [address], [address], [place], [place], [phone], Progress Notes * Westley HUMMEL FDOB:1939 (84 yo M)Acc No.[id number]:09/10/2024 Progress Note Patient:?Westley HUMMEL Anjelica Provider:?Gee Lacey MD :1940???Age:84 Y???Sex:Male Saul e:09/10/2024 Address:[address] [place], [place] [phone] Subjective: * Chief Complaints: * ???1. FASTING LIPIDS. * Medical History:? Objective: * Vitals:? Assessment: * Assessment: 1.?Prediabetes - R73.09 (Molly alva)???2.?Pure hypercholesterolemia - E78.00??? Plan: * Treatment: 2.?Pure hypercholesterolemia ?LAB: Liver Panel (Collection Date & Time - 09/10/2024 08:00 AM) ?LAB: Glucose Fasting (Collection Date & Time - 09/10/2024 08:00 AM) ?LAB: Lipid Panel with Reflex (Collection Date & Time - 09/10/2024 08:00 AM) ?LAB: Hemoglobin A1c (Collection Date & Time - 09/10/2024 08:00 AM) * Procedure Codes:?20562 VENIP UNCT, ROUTINE* * * The named appointment provid er may or may not be the originator of this progress note, and it is not deemed complete until electronically signed by the appointment provider. Sign off status: Pending * Provider:?Gee Lacey MD Date:?0 09/10/2024 Generated for Xavi neely/Olga Lidia/Genetitting on:?11/13/2024 04:51 PM EDT
--- OUTSIDE RECORDS SUMMARY | 2024-11-13 16:51 | XMS_ITS ---
Author Organization Gee Lacey MD Address [address] [place], [place] [id number] Care Team Providers Care Filling Carrier Name Role Phone Gee Lacey Primary Care Provider [phone] Allergies No Known Allergies REASON FOR VISIT 6 MO F/U Medications Medication SIG (Take, Route, Frequency, Duration) Notes Start Date End Date Status Atorvastatin Calcium 40 MG TAKE 1 TABLET BY MOUTH EVERY DAY FOR 90 DAYS for 90 Active dilTIAZem HCl ER Coated Beads 180 MG TAKE 1 CAPSULE BY MOUTH EVERY DAY for 90 Active Clotrimazole 1 % 1 application Externally Twice a day for 14 days 07/26/2024 Active ProAir HFA 108 (90 Base) MCG/ACT 2 puffs as needed Inhalation every 4 hrs for 30 days 05/08/2012 Not-Taking Aspirin 81 MG 1 tablet Orally Once a day for 30 day(s) Active CeleBREX 200 MG 1 capsule Orally Onc e a day for 20 days 05/06/2014 Not-Taking Vital Signs Blood pressure systolic 126 mm Hg 09/20/19 25 Blood pressure diastolic 58 mm Hg 025 Height 68.5 in 09/20/2024 Weight 168 lbs 09/20/2024 BMI 25.17 kg/m2 09/20/2024 Encounters Encounter Location Date Provider Diagnosis Gee Lcaey MD [address] [place] [phone] 09/20/2024 Gee Lacey History of prostate cancer Z85.46 ; Essential hypertension I10 ; Pure hypercholesterolemia E78.00 and Prediabetes R73.09 Assessments Encounter Date Diagnosis (ICD Code) Assessment Notes Treatment Notes Treatment Clinical Notes Section Notes 09/20/2024 History of prostate cancer (ICD-10 - Z85.46) has risen slightly urology does not think that it is going to not be a serious problem 09/20/2024 Essential hypertensi on (ICD-10 - I10) well controlled, will contnue current regiment 09/20/2024 Pure hypercholesterolemia (ICD-10 - E78.00) doing well on meds, will continue current regiment 09/20/2024 Prediabetes (ICD-10 - R73.09) stable, no need for medication at this time Plan Of Treatment Treatment Notes Assessment Notes History of prostate cancer has risen sli ghtly urology does not think that it is going to not be a serious problem Essential hypertension well controlled, will contnue current regiment Pure hypercholesterolemia doing well on meds, will continue current regiment Prediabetes stable, no need for medication at this time Next Appt Details Provider Name:Gee ash, 03/10/2025 07:15:00 AM, [address] [place] [address], Suite [facility], [place], [place], [phone], Provider Name:Gee ash, 03/24/2025 10:30:00 AM, [address] [place] [address], [place] [address], [place], [place], [phone], Progress Notes * Westley HUMMEL FDOB:1939 (84 yo M)Acc No.[id number]:09/20/2024 Progress Notes Patient:?Westley HUMMEL Provider:?Gee Lacey MD :1940???Age:84 Y???Sex:Male Saul e:09/20/2024 [facility] [facility] Subjective: * Chief Complaints: * ???6 MO F/U * HPI: ???Symptom(s):?patient is a 84 yo male here for 6 month? follow up visit/ tremor bothers him. not steady on feet and wobbles when he walks. * ROS:?General/Constitutional:?Denies?Chills.?Denies?Fatigue.?Denies?Fever.?Denies?Headache.?ENT:?Patient denies?decreased sense of smell, any loss of taste, sore throat.?Denies?Sore throat.?Respiratory:?Denies?Cough.?Denies?Shortness of breath at rest.?Denies?Shortness of breath with exertion.?Gastrointestinal:?Denies?Diarrhea.?Denies?Nausea.?Musculoskeletal:?Patient denies?muscle aches.?Peripheral Vascular:?Patient denies?red and blue toes.? * Medical History:? * Surgical History:? * Hospitalization/Major Diagno stic Procedure:? * Medications:?TakingAspirin 8 1 MG Tablet Chewable 1 tablet Orally Once a day Atorvastatin Calcium 40 MG Tablet TAKE 1 TABLET BY MOUTH EVERY DAY FOR 90 DAYS dilTIAZem HCl ER Coated Beads 180 MG Capsule Extended Release 24 Hour TAKE 1 CAPSULE BY MOUTH EVERY DAY Clotrimazole 1 % Cream 1 application Externally Twice a day Taking Aspirin 81 MG Tablet Chewable 1 tablet Orally Once a day Taking Atorvastatin Calcium 40 MG Tablet TAKE 1 TABLET BY MOUTH EVERY DAY FOR 90 DAYS Taking dilTIAZem HCl ER Coated Beads 180 MG Capsule Extended Release 24 Hour TAKE 1 CAPSULE BY MOUTH EVERY DAY Taking Clotrimazole 1 % Cream 1 application Externally Twice a day Not-Taking/PRNCeleBREX 200 MG Capsule 1 capsule Orally Once a day ProAir HFA 108 (90 Base) MCG/ACT Aerosol Solution 2 puffs as needed Inhalation every 4 hrs Medication List reviewed and reconciled with the patientNot-Taking/PRN CeleBREX 200 MG Capsule 1 capsule Orally Once a day Not-Taking/PRN ProAir HFA 108 (90 Base) MCG/ACT Aerosol Solution 2 puffs as needed Inhalation every 4 hrs Medication List reviewed and reconciled with the patient * Allergies:?N.K.D.A.yes[Aller gies Verified] Objective: * Vitals:?Ht: 68.5, Wt: 168, B CT:25.17, BP:126/58, Wt-k.2. * ???Past Orders: ???Lab:Liver Panel (Order Da te - 09/10/2024) (Collection Date & Time - 09/10/2024 08:00 AM) ? Value Reference Range ?Bilirubin Total 0.6 0.0- 1.0 - mg/dL ?Bilirubin Direct 0.2 0.0 -0.5 - mg/dL ?Aspartate Amino Transferase 34 5-37 - U/L ?Alanine Aminotransferase 21 0-40 - U/L ?Total Protein 7.9 6.5-8. 0 - g/dL ?Albumin Level 4.4 3.5-5. 0 - g/dL ?Alkaline Phosphatase 67 39-117 - U/L ???Lab:Glucose Fasting (Orde r Date - 09/10/2024) (Collection Date & Time - 09/10/2024 08:00 AM) ? Value Reference Range ?Glucose Fasting 89 60-9 9 - mg/dL ???Lab:Lipid Panel with Refl ex (Order Date - 09/10/2024) (Collection Date & Time - 09/10/2024 08:00 AM) ? Value Reference Range ?Triglycerides 113 <150 - mg/dL ?Cholesterol 126 <200 - m g/dL ?LDL Cholesterol Calculated 69 <100 - mg/dL ?HDL Cholesterol 35 L >40 - mg/dL ???Lab:Hemoglobin A1c (Order Date - 09/10/2024) (Collection Date & Time - 09/10/2024 08:00 AM) ? Value Reference Range ?Hemoglobin A1c % 5.6 <6. 0 - % ?Estimated Average Glucose 114 - mg/dL * Examination: ???General Examination: ?GENERAL APPEARANCE:?alert, well hydrated, in no distress.?SKIN:?good turgor.?HEART:?no murmurs, rubs, gallops, regular rate and rhythm.?LUNGS:?no wheezes, rales, rhonchi, good air movement, clear to auscultation bilaterally.?EXTREMITIES:?has a tremor no cogwheeling gait is good.? Assessment: * Assessment: 1.?History of prostate cance r - Z85.46 (Primary)???2.?Essential hypertension - I10???3.?Pure hypercholesterolemia - E78.00???4.?Prediabetes - R73.09??? Plan: * Treatment: 2.?Essential hypertension? Notes: well controlled, will contnue current regiment?? 3.?Pure hypercholesterolemia ? Notes: doing well on meds, will continue current regiment?? 4.?Prediabetes? Notes: stable, no need for medication at this time?? * Procedure Codes:? * * Sign off status: Completed true * Provider:?Gee Lacey MD Date:?0 09/20/2024 Generated for Radhai ng/Olga Lidia/eTransmitting on:?11/13/2024 04:51 PM EDT History and Physical Notes * HPI (History of Present Illness) Category Sub-Category Detail Notes Category Not es Symptom(s) patient is a 84 yo male here for 6 month follow up visit/ tremor bothers him. not steady on feet and wobbles when he walks Examination Category Sub-Category Detail Notes Category Not es General Examination GENERAL APPEARANCE: alert, w ell hydrated, in no distress HEART: no murmurs, rubs, ga llops, regular rate and rhythm LUNGS: no wheezes, rales, r honchi, good air movement, clear to auscultation bilaterally SKIN: good turgor EXTREMITIES: has a tremor no cogw heeling gait is good
--- OUTSIDE RECORDS SUMMARY | 2024-11-13 16:51 | XMS_ITS ---
Author Organization Gee Lacey MD Address [address] [place], [place] [id number] Care Team Providers Care Digital Technician Name Role Phone Gee Lacey Primary Care Provider [phone] Allergies No Known Allergies REASON FOR [...] Problem Status W/U Status Risk Notes Problem [id number] Nanci (N48.1) Active confirmed Vital Signs Blood pressure systolic 142 mm Hg 07/26/20 24 Blood pressure diastolic 76 mm Hg 024 Height 68.5 in 07/26/2024 Weight 167 lbs 07/26/2024 BMI 25.02 kg/m2 07/26/2024 Encounters Encounter Location Date Provider Diagnosis Gee Lacey MD [address] [place] [address] [place] [phone] 07/26/2024 Gee Lacey Charlestis N48.1 Assessments Encounter Date Diagnosis (ICD Code) Assessment Notes Treatment Notes Treatment Clinical Notes Section Notes 07/26/2024 Charlestis (ICD-10 - N48.1) patient verbalized understanding of medication and directions for use Plan Of Treatment Medication Medication Name Sig Start Date Stop Date Notes Clotrimazole 1 % 1 application Freezer Laboratory Technician ally Twice a day for 14 days 07/26/2024 Treatment Notes Assessment Notes Balanitis patient verbalized u nderstanding of medication and directions for use Next Appt Details Provider Name:Gee ash, 03/10/2025 07:15:00 AM, [address] [place] [address], [place] [address], [place], [place], [phone], Provider Name:Gee miltonr, 03/24/2025 10:30:00 AM, [address] [place] [address], [place] [address], [place], [place], [phone], Progress Notes * Westley GAY FDOB:1939 (84 yo M)Acc No.[id number]:07/26/2024 Progress Notes Patient:?Westley Gay Anjelica Provider:?Gee Lacey MD :1940???Age:84 Y???Sex:Male Saul e:07/26/2024 [facility] Subjective: * Chief Complaints: * ???Rash on [...] a rash under foreskin.? Assessment: * Assessment: 1.?Charlestis - N48.1 (Primar y)? Plan: * Treatment: * Procedure Codes:? * * Sign off status: Completed true * Provider:?Gee Lacey MD Date:?1 09/26/2023 Generated for Xavi neely/Olga Lidia/Breonnasmitting on:?11/13/2024 04:51 PM EDT History and Physical [...]
== END 2024-11-13 14:42 | disposition home or self-care (01) ==
PROVIDERS: PCP Internal Medicine; Visit Provider Internal Medicine Cardiovascular Disease
DX: I48.0 Paroxysmal atrial fibrillation (principal); I25.10 Atherosclerotic heart disease of native coronary artery without angina pectoris
CPT/HCPCS: 93010; 99214; G2211

== ENCOUNTER → 2024-11-13 14:07 | Outpatient (BNVA) | payer MEDICARE, SELFPAY | PROVIDERS: PCP Internal Medicine; Visit Provider Internal Medicine Cardiovascular Disease | DX: I48.0 Paroxysmal atrial fibrillation (principal); I25.10 Atherosclerotic heart disease of native coronary artery without angina pectoris | CPT/HCPCS: 93005; 99212 ==

== ENCOUNTER 2025-03-10 09:57 | Outpatient (REF) | payer MEDICARE, SELFPAY ==
--- OUTSIDE RECORDS SUMMARY | 2025-03-04 23:59 | XMS_ITS | Continuity of Care Document ---
Author Organization [facility] Address [address] [address]- Care Team Providers Care State Epidemiologist Name Role Phone Deepthi BLANCHARD, Gee Primary Care Physician [phone] Encounter [facility] Date(s): 02/25/25 - 03/04/25 [facility] [address] [address]- Attending Physician: Ellen BLANCHARD, Keisha Davis Admitting Physician: Keisha Hughes MD Referring Physician: Keisha Hughes MD Encounter Type: One Time OP Allergies, Adverse Reactions, Alerts No Known Allergies Medications aspirin 81 mg oral tablet, dispersible 1 tablet = 81 mg, By Mouth, Daily, 0 Refills, Maintenance, 11/27/13 2:29:05 PM EDT Start Date: 11/27/13 Status: Ordered Repeat number: 1 diltiazem 180 mg/24 hours oral tablet, extended release 1 tablet = 180 mg, By Mouth, Daily, 0 Refills, Maintenance, 11/27/13 2:28:10 PM EDT Start Date: 11/27/13 Status: Ordered Repeat number: 1 Lipitor 20 mg oral tablet 1 tablet = 20 mg, By Mouth, Daily, # 90 tablet, 0 Refills, Maintenance, 11/27/13 2:28:30 PM EDT, Tablet Start Date: 11/27/13 Status: Ordered Quantity: 90.0 Unit: tablet Repeat number: 1 Problem List Condition Confirmation Course Effective Dates Status Health St atus Informant AAA (abdominal aortic aneurysm) Confirmed Active Renal cysts, acquired, bilateral Confirmed Active Angina at rest Confirmed Active Afib Confirmed Active Mild CAD (coronary artery disease) Confirmed 11/27/13 Active GERD (gastroesophageal reflux disease) Confirmed Active Hernia Confirmed 04/01/11 Active Cataract extraction status Confirmed Active HLD (hyperlipidemia) Confirmed Active HTN (hypertension) Confirmed Active Prediabetes Confirmed Active Melanoma Confirmed Active Prostate cancer Confirmed Active Pneumonia Confirmed Active Social History Social History Type Response Smoking Status Never (less than 100 in lifetime) entered on: 02/03/23 Sex Sex Representation Male (finding) Cardiology * Event Display: VL Aorta/iliac Duplex Scan Comp Authored Date: [id number] Demographics Procedure Information Patient name: VICTOR HUGO BENNETT Procedure date: 02/25/2025 9:48 AM Corporate Proc. sub type: Abdominal: Endovascular Graft. Gender: Male Accession No: [id number] Date of : 1940 Account No: [id number] Age: 85 year(s) Patient status: Routine Admit Status: Outpatient Procedure Staff Probe: C5-1 Attending Physician: Ellen Davis MD Technical quality: Adequate visualization Ordering physician: Ellen Davis MD Limitation reason: Bowel gas Referring Physician: Ellen Davis MD Facility: [facility] Classified Ad Taker: Katy Mcneal Study location: [facility] Interpreting physician: Ellen Davis MD Procedure consent obtained: No Indications AAA infrarenal Aorta. Endovascular Grafts Aorta Prox Graft Site: Aorta PSV EDV AP Diam Trans Location (cm/s) (cm/s) (cm) Diam (cm) Aorta Infra Renal 79.2 Prox Graft 70.4 Right Limb 83.1 Left Limb 130 Right Iliac 106 Left Iliac 103 Study Comments Endoleak: all leaks must be confirmed with spectral doppler. True leaks will have reproducible arterial waveforms that will differ from the graft waveform. -Type I: Attachment endoleak at the proximal and/or distal attachment site (s). -Type II: Branch leaks from vessels that normally branch off the Aorta, resulting in retrograde flow into the aneurysmal sac. This resulting blood flow keeps the sac pressurized. -Type III: Modular connection endoleak. -Type IV: Transgraft endoleak resulting in minute tears in the fabric wall of the graft. -Type V: A condition in which no visible blood flow is detected in the aneurysm, but the sac contains anechoic areas and either expands or fails to contract over time. Technically difficult due to overlying bowel gas. Physician Conclusions Summary: The aortic endograft was visualized. No evidence of endoleak was noted. The residual sac measures 6.83 x 5.94 x 6.56cm, previously 6.2 x 6.1 x 5.7cm. Comparison is made to previous ultrasound exam dated 08/11/23. * Event Display: VL Aorta/iliac Duplex Scan Comp Authored Date: [id number] Patient Care team information Care Team Personnel Name: Gee Lacey MD Position: Reference Physician Member Role: PCP Address: [address] [place] [address] Gee Lacey MD [place], [place] [address] Telecom: [phone] Name: Tatiana Petit RN Position: [facility] OB RN Member Role: Primary Care Nurse Name: Yahaira Mancilla RN Position: S RN Member Role: Primary Care Nurse Care Team Related Persons Name: LYDIA GAY Insurance Providers Guarantor name: DONALD VICTOR HUGO Health Plan Information #: 1 Payer: MEDICARE B Payer Identifier: Member Number: [id number] Group Number: Subscriber Identifier: [id number] Relationship to Subscriber: self Coverage Type: NA Coverage Verification Date: NA Telecom: NA Address: [facility] Information #: 2 Payer: [employer] SECONDARY ONLY Payer Identifier: Member Number: [id number] Group Number: Subscriber Identifier: [id number] Relationship to Subscriber: self Coverage Type: Medicare Other Coverage Verification Date: NA Telecom: Address:
--- OUTSIDE RECORDS SUMMARY | 2025-03-10 03:15 | XMS_ITS ---
Author Organization Gee Lacey MD Address [address] [place], [place] [id number] Care Team Providers Care Fender Repairer Name Role Phone Gee Lacey Primary Care Provider Results Component Value Reference Range Notes Complete Blood Count Auto Di ff (Not yet reviewed by provider) Interpretation: Performing Lab:[facility], [address] [place] [phone] Notes/Report: White Blood Count 4.6 4.8-10.8 X10*3/uL Red Blood Count 4.08 4.60-5.80 X10*6/uL Hemoglobin 12.8 14.0-18.0 g/dl Hematocrit 38.7 42.0-52.0 % Mean Corpuscular Volume 94.9 80.0-98.0 fL Mean Corpuscular Hemoglobin 31.4 27.0-33.0 pg Mean Corpuscular HGB Conc 33.1 31.0-36.0 g/dl Red Cell Distribution Width 13.2 11.0-16.0 % Platelet Count 164 160-400 X10*3/uL Mean Platelet Volume 9.5 9.4-12.4 fL Neutrophils Percent Auto 36.6 45-73 % Imm Gran Pct Auto 0.7 0.0-0.4 % Lymphocytes Percent Auto 45.6 20-40 % Monocytes Percent Auto 10.7 2-11 % Eosinophils Percent Auto 5.5 0-4 % Basophils Percent Auto 0.9 0-2 % NRBC Pct Auto 0.0 0.0-0.2 /100WBC Neutrophils Absolute Auto 1.7 2.0-8.3 x10*3/u L Imm Gran Abs Auto 0.03 0.00-0.03 X10*3/uL Lymphocytes Absolute Auto 2.1 1.2-4.9 X10*3/u L Monocytes Absolute Auto 0.5 0.1-1.2 X10*3/uL Eosinophils Absolute Auto 0.3 0.0-0.4 X10*3/u L Basophils Absolute Auto 0.0 0.0-0.2 X10*3/uL NRBC Abs Auto 0.000 0.0-0.012 X10*3/uL REASON FOR VISIT FASTING LABS Medications Medication SIG (Take, Route, Frequency, Duration) Notes Start Date End Date Status CeleBREX 200 MG 1 capsule Orally Onc e a day for 20 days 05/06/2014 Not-Taking ProAir HFA 108 (90 Base) MCG/ACT 2 puffs as needed Inhalation every 4 hrs for 30 days 05/08/2012 Not-Taking Atorvastatin Calcium 40 MG TAKE 1 TABLET BY MOUTH EVERY DAY FOR 90 DAYS for 90 Active dilTIAZem HCl ER Coated Beads 180 MG TAKE 1 CAPSULE BY MOUTH EVERY DAY for 90 Active Clotrimazole 1 % 1 application Externally Twice a day for 14 days 07/26/2024 Active Aspirin 81 MG 1 tablet Orally Once a day for 30 day(s) Active Encounters Encounter Location Date Provider Diagnosis Gee Lacey MD [address] [facility] [address] [place], [place] [id number] 03/10/2025 Gee Lacey Prediabetes R73.09 ; Essential hypertension I10 ; Pure hypercholesterolemia E78.00 ; Thrombocytopenia D69.6 ; Neutropenia D70.9 and Paroxysmal atrial fibrillation I48.0 Assessments Encounter Date Diagnosis (ICD Code) Assessment Notes Treatment Notes Treatment Clinical Notes Section Notes 03/10/2025 Prediabetes (ICD-10 - R73.09) 03/10/2025 Essential hypertensi on (ICD-10 - I10) 03/10/2025 Pure hypercholesterolemia (ICD-10 - E78.00) 03/10/2025 Thrombocytopenia (IC D-10 - D69.6) 03/10/2025 Neutropenia (ICD-10 - D70.9) 03/10/2025 Paroxysmal atrial fibrillation (ICD-10 - I48.0) Plan Of Treatment Pending Test Test Name Order Date Complete Blood Count Auto Diff Comprehensive [place]. Panel Fast Liver Panel 03/10/2025 Lipid Panel 03/10/2025 PSA,Total (Free>4and<10) 03/10/2025 Microalbumin, Random 03/10/2025 Hemoglobin A1c 03/10/2025 UA ClnCatch+Micro w/rflx Cult 03/10/2025 Next Appt Details Provider Name:Gee Pierre ier, 03/24/2025 10:30:00 AM, [address] [place] [address], [address], [place], [place], [id number], Progress Notes * VICTOR HUGOWestley ENRIQUEZ FDOB:1939 (85 yo M)Acc No.[id number]:03/10/2025 Progress Note Patient: Westley KHANNA Provider: Virgilio Lacey MD :1940 A ge:85 Y S ex:Male Date:03/10/2025 Address:[address] [place], [place] [id number] Subjective: * Chief Complaints: * 1 . FASTING LABS. * Medical History: * Medications: T aking Aspirin 81 MG Tablet Chewable 1 tablet Orally Once a day , Taking Atorvastatin Calcium 40 MG Tablet TAKE 1 TABLET BY MOUTH EVERY DAY FOR 90 DAYS , Taking dilTIAZem HCl ER Coated Beads 180 MG Capsule Extended Release 24 Hour TAKE 1 CAPSULE BY MOUTH EVERY DAY , Taking Clotrimazole 1 % Cream 1 application Externally Twice a day , Not-Taking/PRN CeleBREX 200 MG Capsule 1 capsule Orally Once a day , Not- Taking/PRN ProAir HFA 108 (90 Base) MCG/ACT Aerosol Solution 2 puffs as needed Inhalation every 4 hrs Objective: * Vitals: Assessment: * Assessment: 1. P rediabetes - R73.09 (Primary) 2 . E ssential hypertension - I10 ? 3 . P ure hypercholesterolemia - E78.00 4 . T hrombocytopenia - D69.6 5 . N eutropenia - D70.9 6 . P aroxysmal atrial fibrillation - I48.0 Plan: * Treatment: 2. E ssential hypertension L AB: Complete Blood Count Auto Diff (Collection Date & Time - 03/10/2025 07:15 AM) L AB: [facility] [place]. Panel Fast L AB: Liver Panel L AB: Lipid Panel L AB: PSA,Total (Free>4and<10) L AB: Microalbumin, Random L AB: Hemoglobin A1c L AB: UA ClnCatch+Micro w/rflx Cult 3. P ure hypercholesterolemia L AB: Complete Blood Count Auto Diff (Collection Date & Time - 03/10/2025 07:15 AM) L AB: [facility] [place]. Panel Fast L AB: Liver Panel L AB: Lipid Panel L AB: PSA,Total (Free>4and<10) L AB: Microalbumin, Random L AB: Hemoglobin A1c L AB: UA ClnCatch+Micro w/rflx Cult 4. T hrombocytopenia L AB: Complete Blood Count Auto Diff (Collection Date & Time - 03/10/2025 07:15 AM) L AB: [facility] [place]. Panel Fast L AB: Liver Panel L AB: Lipid Panel L AB: PSA,Total (Free>4and<10) L AB: Microalbumin, Random L AB: Hemoglobin A1c L AB: UA ClnCatch+Micro w/rflx Cult 5. N eutropenia L AB: Complete Blood Count Auto Diff (Collection Date & Time - 03/10/2025 07:15 AM) L AB: [facility] [place]. Panel Fast L AB: Liver Panel L AB: Lipid Panel L AB: PSA,Total (Free>4and<10) L AB: Microalbumin, Random L AB: Hemoglobin A1c L AB: UA ClnCatch+Micro w/rflx Cult 6. P aroxysmal atrial fibrillation L AB: Complete Blood Count Auto Diff (Collection Date & Time - 03/10/2025 07:15 AM) L AB: [facility] [place]. Panel Fast L AB: Liver Panel L AB: Lipid Panel L AB: PSA,Total (Free>4and<10) L AB: Microalbumin, Random L AB: Hemoglobin A1c L AB: UA ClnCatch+Micro w/rflx Cult * Procedure Codes: 3 6415 VENIPUNCT, ROUTINE* * * The named appointment provid er may or may not be the originator of this progress note, and it is not deemed complete until electronically signed by the appointment provider. Sign off status: Pending * Provider: Virgilio Lacey MD Date: 0 03/10/2025 Generated for Xavi neely/Olga Lidia/Mela on: 03/10/2025 10:58 AM EDT
[2025-03-10 10:01] LABS: MANUAL DIFF FLAG NO
[2025-03-10 10:51] LABS: Hematocrit 38.7 % (42.0-52.0); Hemoglobin 12.8 g/dl (14.0-18.0); Imm Gran Abs Auto 0.03 X10*3/uL (0.00-0.03); Imm Gran Pct Auto 0.7 % (0.0-0.4); Lymphocytes Absolute Auto 2.1 X10*3/uL (1.2-4.9); Mean Corpuscular HGB Conc 33.1 g/dl (31.0-36.0); Mean Corpuscular Hemoglobin 31.4 pg (27.0-33.0); Mean Corpuscular Volume 94.9 fL (80.0-98.0); NRBC Abs Auto 0.000 X10*3/uL (0.0-0.012); NRBC Pct Auto 0.0 /100WBC (0.0-0.2); Platelet Count 164 X10*3/uL (160-400); Red Blood Count 4.08 X10*6/uL (4.60-5.80); White Blood Count 4.6 X10*3/uL (4.8-10.8)
--- OUTSIDE RECORDS SUMMARY | 2025-03-10 10:58 | XMS_ITS | Patient Health Record ---
Author Organization [facility] Address [address] [place] [id number] Care Team Providers Care Overcoil Stepper Name Role Phone Deepthi BLANCHARD, Gee Primary Care Provider Pablito Luis [phone] Allergies Allergen (clinical drug ingredient) Drug/Non Drug Allergy documented on EMR Reaction Allergy Type Onset Date Status Novocain Unknown Drug Allergy Active Reason For Referral No Information Medications Medication SIG (Take, Route, Fr equency, Duration) Notes Start Date End Date Status MoviPrep 100 GM as directed Orally a s directed for 1 dose 04/22/2014 Active Aspirin 81 MG 1 tablet Orally Once a day Active Simvastatin 40 MG 1 tablet in the even ing Orally Once a day Active dilTIAZem HCl ER 180 MG 1 capsule on an empty stomach in the morning Orally Once a day Active Problems Problem Type SNOMED Code ICD Code Onset Dates Problem Status W/U Status Risk Notes Problem Colon cancer screening ([id number]) Colon cancer screening (V76.51) Active confirmed Problem Long-term use of aspirin therapy (V58.66) Active confirmed Plan Of Treatment Future Test Test Name Order Date COLONOSCOPY 04/22/2014 Insurance Providers Payer Name Payer Address Payer Phone Subscriber Number Group Number Insured Name Patient Relationship to Insured Coverage Start Date [place]age End [place] [facility] [place] [employer] [address] [place] [address] [phone] [id number] G[address] Self - patient is the insured Medical (General) History Medical History History ICD Code Colonoscopy [id number] except for dive rticulosis Prostate cancer Diverticulosis GERD--neg. EGD in 2003--no Loredo's nor esophagitis Hyperlipidemia Peptic ulcer disease--UGI bl eed from gastric and duodenal ulcers in --Rx'd for H.pylori--F/U EGD in 03/1995 revealed healing of the ulcers and neg. H.pylori HTN Neg. cardiac cath in 11/[address] Covarrubias th Denies LA,DM,CVA,Lung disease,renal dise ase Kidney stones Surgical History Surgery Date(Month/Year) Excision of skin cancer on neck Inguinal hernia by Dr. Winston Radical prostatectomy in the 1989'
--- OUTSIDE RECORDS SUMMARY | 2025-03-10 10:59 | XMS_ITS | Clinical Summary ---
Author Organization [facility] Address [address] [address] Phone Care Team Providers Care Aircraft Mechanic Name Role Phone Gee Lacey MD Primary Care Provider Allergies No known active allergies Medications atorvastatin (LIPITOR) 20 MG tablet Take 20 mg by mouth daily. 09/29/2020 Active dilTIAZem (CARDIZEM CD) 180 MG 24 hr capsule Take by mouth daily. 10/12/2020 Active Active Problems No known active problems Social History Tobacco Use Types Packs/Day Years Used Date Smoking Tobacco: Former Smokeless Tobacco: Never Education Answer Date Recorded Are you interested in more education? Not on marcelo e 12/10/2022 Are you concerned about learning? Not on file 12/10/2022 No 12/10/2022 No 12/10/2022 Digital Access Answer Date Recorded No 01/07/2023 No 01/07/2023 No 01/07/2023 Reliable internet access at home? Not on file 01/07/2023 Device with a working camera? Not on file Sex and Gender Information Value Date Recorded Sex Assigned at Not on file Legal Sex Male 6:11 PM EDT Gender Identity Not on file Sexual Orientation Not on file Last Filed Vital Signs Vital Sign Reading Time Taken Comments Blood Pressure 159/84 12/03/2020 6:21 PM EDT Pulse 78 12/03/2020 6:21 PM EDT Temperature 36.9 C (98.5 F) 12/03/2020 6:21 PM EDT Respiratory Rate 18 12/03/2020 6:21 PM EDT Oxygen Saturation 99% 12/03/2020 6:21 PM EDT Inhaled Oxygen Concentration - - Weight 72.6 kg (160 lb) 12/03/2020 6:21 PM EDT Height 177.8 cm (5' 10 ) 12/03/2020 6:21 PM EDT Body Mass Index 22.96 12/03/2020 6:21 PM EDT Plan of Treatment Health Maintenance Due Date Last Done Comments Adult Td,Tdap Booster 1940 DEPRESSION SCREENING 1952 RSV VACCINE (1 - 1-dose 75+ series) 2014 COVID-19 VACCINE (2 - 2023-2 5 season) 2024 10/26/2020 ZOSTER VACCINES Completed 11/27/2018, 07/30/2018 PNEUMOCOCCAL VACCINES (50+ years) Completed 05/07/2020, 05/06/2016 HEPATITIS A VACCINES Aged Out No long er eligible based on patient's age to complete this topic HIB VACCINES Aged Out No longer eligi ble based on patient's age to complete this topic MENINGOCOCCAL VACCINES (ACWY) Aged Out No longer eligible based on patient's age to complete this topic MENINGOCOCCAL VACCINES (B) Aged Out N o longer eligible based on patient's age to complete this topic Medical Devices Not on file Insurance MEDICARE PART A & B BLUE CROSS MEDEX SUPPLEMENT Member Subscriber Plan / Payer (Ef fective 2004-Present) Name:Westley Hummel Relation to Subscriber:Self Name:Westley Hummel Payer ID:[id number] (NAIC) Type:Indemni Address: [facility] [id number] [place] [id number] MEDICARE PART A & B [employer] [place] MEDEX SUPPLEMENT MEDICARE PART A & B [employer] [place] MEDEX SUPPLEMENT MEDICARE PART A & B [employer] [place] MEDEX SUPPLEMENT MEDICARE PART A & B [employer] [place] MEDEX SUPPLEMENT MEDICARE PART A & B [employer] [place] MEDEX SUPPLEMENT MEDICARE PART A & B BLUE CROSS MEDEX SUPPLEMENT MEDICARE PART A & B [employer] CROSS MEDEX SUPPLEMENT MEDICARE PART A & B BLUE CROSS MEDEX SUPPLEMENT Care Teams Aircraft Mechanic Relationship Specialty Start Date End Date Gee Lacey MD [address] [place] [address] [place] [address] PCP - General Internal Medicine 12/03/20 Additional Source Comments The information contained in this document represents components of the legal health record. It is not the complete legal health record.[facility]
[2025-03-10 11:03] LABS: Microalbum/Creatinine Ratio Ur 26.2 ug/mg cr (<30)
[2025-03-10 11:06] LABS: Hemoglobin A1C 130.3405 umol/L; Total Hemoglobin (HGBA1C) 3332.8015 umol/L
[2025-03-10 11:10] LABS: Alanine Aminotransferase 20 U/L (0-40); Albumin Level 4.4 g/dL (3.5-5.0); Alkaline Phosphatase 74 U/L (39-117); Anion Gap 14 (12-20); Aspartate Amino Transferase 31 U/L (5-37); Blood Urea Nitrogen 23 mg/dL (9-16); Calcium 9.0 mg/dL (8.4-10.2); Carbon Dioxide 25 mmol/L (22-29); Chloride 106 mmol/L (96-108); Cholesterol 125 mg/dL (<200); Estimated Glomerular Filt Rate 43; HDL Cholesterol 29 mg/dL (>40); Potassium 4.5 mmol/L (3.3-5.1); Sodium 140 mmol/L (135-145); Total Protein 7.6 g/dL (6.5-8.0); Triglycerides 197 mg/dL (<150)
[2025-03-10 11:13] LABS: Appearance Urine Clear; Glucose Urine UA Negative (Negative); PH 5.5 (5.0-9.0); Specific Gravity - Urine 1.020 (1.005-1.025); UMIC TRIGGER UACC YES
[2025-03-10 11:24] LABS: PSA,Total (Free>4and<10) 3.92 ng/mL (0.00-4.00)
== END 2025-03-10 09:58 | disposition home or self-care (01) ==
LOC: HO.LNP 09:57
PROVIDERS: Visit Provider Internal Medicine
DX: Z12.5 Encounter for screening for malignant neoplasm of prostate (principal); I10 Essential (primary) hypertension; I48.0 Paroxysmal atrial fibrillation; E78.00 Pure hypercholesterolemia, unspecified; D69.6 Thrombocytopenia, unspecified; D70.9 Neutropenia, unspecified; R73.03 Prediabetes
CPT/HCPCS: 80053; 80061; 80076; 81001; 82043; 82248; 82570; 83036; 84153; 85025

== ENCOUNTER 2025-04-27 07:36 | Emergency (ER) | payer MEDICARE, SELFPAY ==
[2025-04-27 07:49] VITALS: BP 169/90; PULSE 85; RESP 16; TEMP 36.3; O2SAT 94; BMI 25.1
--- NOTE | 2025-04-27 08:57 | PC.NURSE ---
Patient is a 85 yo male who presents after knicking his left chin while shaving and stated it would not stop bleeding. Small knick noted to left chin and bleeding appears be controlled at this time. Lungs clear bilat. Respirations even and non-labored. Denies any pain at this time. No distress noted. Medical History CAD (coronary artery disease) Paroxysmal atrial fibrillation HTN (hypertension)
--- OUTSIDE RECORDS SUMMARY | 2025-04-27 08:59 | XMS_ITS | Clinical Summary ---
Author Organization [facility] Address [address] [address] Phone Care Team Providers Care Police Cadet Name Role Phone Gee Lacey MD Primary [...] VACCINE (1 - 1-dose 75+ series) 2014 INFLUENZA VACCINE (#1) 2025 , 05/20/2019, 05/14/2018, Additional history exists COVID-19 VACCINE ( season) 2025 10/26/2020 ZOSTER VACCINES Completed 11/27/2018, 07/30/2018 PNEUMOCOCCAL [...] file Insurance MEDICARE PART A & B [employer] CROSS MEDEX SUPPLEMENT MEDICARE PART A & B [employer] MEDEX SUPPLEMENT MEDICARE PART A & B Nov[employer] MEDEX SUPPLEMENT MEDICARE PART A & B Novi MEDEX SUPPLEMENT MEDICARE PART A & B BLUE CROSS MEDEX SUPPLEMENT MEDICARE PART A & B [employer] CROSS MEDEX SUPPLEMENT MEDICARE PART A & B Novi MEDEX SUPPLEMENT Novi MEDEX SUPPLEMENT MEDICARE PART A & B [employer]ema [employer] CROSS MEDEX SUPPLEMENT Care Teams Police Cadet Relationship Specialty Start Date End Date Gee Lacey MD [address] [place] [address] [place] [address] PCP - General Internal Medicine 12/03/20 Additional Source Comments The information contained in this document represents components of the legal health record. It is not the complete legal health record.[facility]
--- NOTE | 2025-04-27 09:04 | ED.GENADULT ---
HPI - General Adult General Chief complaint: Wound/Laceration Stated complaint: bleeding from lip? Time Seen by Provider: 04/27/25 09:03 Source: patient, RN notes reviewed and old records reviewed Mode of arrival: ambulatory Limitations: no limitations History of Present Illness ED Provider: Yan [facility] narrative: Patient is an 85-year-old male presenting to the ED with complaint of ongoing bleeding from left side of chin after shaving this morning. He is not anticoagulated but does take aspirin daily. Tdap UTD. Denies pain to the area. complaint: chin laceration Onset (ago): minute(s) Related Data Home Medications ?Medication ?Instructions ?Recorded ?Confirmed aspirin 81 mg tablet,delayed 81 mg PO DAILY 09/22/20 11/13/24 release (Adult Low Dose Aspirin) diltiazem HCl 180 mg 180 mg PO DAILY 09/22/20 11/13/24 capsule,extended release 24 hr atorvastatin 40 mg tablet 40 mg PO DAILY 11/13/24 11/13/24 Allergies Allergy/AdvReac Type Severity Reaction Status Date / Time No Known Allergies Allergy Verified 04/27/25 07:49 Review of Systems Review of Systems: As per hPI Yes all other systems are reviewed and are negative Constitutional: Constitutional: Reports as per HPI PMFSH Past Medical History Medical History CAD (coronary artery disease) Paroxysmal atrial fibrillation HTN (hypertension) Surgical History Hx of aortic aneurysm repair Hx of cardiac cath Hx of prostatectomy History of hip surgery Family History Family History Father No problems noted. Mother Cancer Social History Social History Smoked in Last 30 Days: No Use of substances other than those prescribed or required for medical reasons: No Advance Directives: Yes Advance Directives Information Provided: Yes Advance Directives on File: No Physical Exam ED Vital Signs: Vital Signs - 24 hr 04/27/25 07:49 Temperature 97.3 F Pulse Rate 85 Respiratory Rate 16 Blood Pressure 169/90 H Pulse Oximetry 94 Oxygen Delivery Method Room Air BMI result Body Mass Index 25.1 Vital signs have been reviewed and appear to be correct. Blood pressure normal. Heart rate normal. Respiratory rate normal. Temperature normal. Oxygen saturation normal. Const General: cooperative, healthy appearing and no acute distress Orientation/consciousness: oriented to person, oriented to place, oriented to time and patient oriented x3 Limitations: no limitations HENMT Head: Yes normocephalic and Yes atraumatic Ears: external ears normal General nose exam: Normal external nose present Face and sinus: Yes face symmetric Face images:  1. 1mm abrasion/avulsion to left side of chin without active bleeding Mouth: oropharynx normal and moist mucous membranes Throat: Yes uvula midline Eyes Pupils: Equal, round and reactive pupils present Neck Neck: Yes normal visual inspection and Yes supple Resp Effort & Inspection: normal respiratory effort and able to speak in complete sentences Auscultation: clear to auscultation bilaterally Cardio Rate: regular rate Rhythm: regular rhythm Heart sounds: S1 normal heart sound present and S2 normal heart sound present GI Palpation (GI): Soft to palpation and nontender Auscultation: normoactive bowel sounds General: Yes no CVA tenderness Back/Spine/Pelvis Back: no CVA tenderness Skin General skin exam: elasticity normal and turgor normal Neuro General: oriented to person, oriented to place, oriented to time, patient oriented x3, moves all extremities, no focal motor deficits and CN's II-XI intact bilaterally Cranial nerves: Yes Equal, round and reactive pupils present Cognition (Neuro): normal cognition Extrem General: Yes full ROM, Yes no pedal edema and Yes no calf tenderness Psych Mental Status: mental status grossly normal Affect: normal affect Thought process: Normal thought process present Medical Decision Making Medical Decision Making [facility] Narrative: Patient is an 85-year-old male presenting to the ED with complaint of ongoing bleeding from left side of chin after shaving this morning. On exam patient is awake, A+Ox3, VS WNL, afebrile, normal neurological exam without focal deficits, physical exam findings as above. Given reported symptoms and physical exam findings, initial differential includes but is not limited to abrasion, avulsion, uncontrolled bleeding. Bleeding controlled with gauze in the ED prior to my assessment. Will apply a small amount of dermabond to prevent rebleeding. Tdap UTD. Wound care instructions discussed with patient. Patient verbalized understanding of and agreement with plan. Differential Diagnosis Differential Diagnoses: The differential diagnosis associated with the presentation includes as per [facility] Admission/Observation Consideration of admission/observation: Escalation of care including admission/observation considered Patient would have been admitted to the hospital had their clinical presentation warranted hospital admission. External Record Review External record reviewed: Inpatient record, Office record and Outpatient record Discharge Plan Discharge Clinical Impression: Abrasion of face Qualifiers: Encounter type: initial encounter Qualified Code(s): S00.81XA - Abrasion of other part of head, initial encounter Patient Disposition: Home, Self-Care Instructions: Abrasion (ED), Skin Adhesive Care (ED) Additional Instructions: You were evaluated in the emergency department today for bleeding from your face after shaving. The bleeding was controlled in the emergency department and a small amount of skin glue was applied to prevent additional bleeding. The glue will fall off on its own within the next few days. Do not pick or peel at the edges. Avoid shaving until the area has fully healed. Assist the area daily for any signs of new redness, swelling, thick yellow drainage and return to the emergency department if this occurs. Follow up with your primary care provider as needed. Prescriptions: No Action diltiazem HCl 180 mg capsule,extended release 24hr 180 mg PO DAILY aspirin [Adult Low Dose Aspirin] 81 mg tablet,delayed release (DR/EC) 81 mg PO DAILY atorvastatin 40 mg tablet 40 mg PO DAILY Print Language: Kazakh
[2025-04-27 09:43] VITALS: BP 169/90; PULSE 85; RESP 16; TEMP 36.3; O2SAT 94
== END 2025-04-27 09:43 | disposition home or self-care (01) ==
PROVIDERS: Emergency Provider Emergency Medicine; PCP Internal Medicine
DX: S00.81XA Abrasion of other part of head, initial encounter (principal); W26.9XXA Contact with unspecified sharp object(s), initial encounter; Y93.9 Activity, unspecified; Y92.9 Unspecified place or not applicable; Y99.8 Other external cause status; Z79.899 Other long term (current) drug therapy
CPT/HCPCS: 99282; 99284

== ENCOUNTER 2025-05-23 11:36 | Outpatient (REF) | payer MEDICARE, SELFPAY ==
[2025-05-23 11:40] LABS: MANUAL DIFF FLAG NO
[2025-05-23 11:58] LABS: Hematocrit 40.4 % (42.0-52.0); Hemoglobin 13.1 g/dl (14.0-18.0); Imm Gran Abs Auto 0.03 X10*3/uL (0.00-0.03); Imm Gran Pct Auto 0.7 % (0.0-0.4); Lymphocytes Absolute Auto 1.7 X10*3/uL (1.2-4.9); Mean Corpuscular HGB Conc 32.4 g/dl (31.0-36.0); Mean Corpuscular Hemoglobin 30.8 pg (27.0-33.0); Mean Corpuscular Volume 95.1 fL (80.0-98.0); NRBC Abs Auto 0.000 X10*3/uL (0.0-0.012); NRBC Pct Auto 0.0 /100WBC (0.0-0.2); Platelet Count 169 X10*3/uL (160-400); Red Blood Count 4.25 X10*6/uL (4.60-5.80); White Blood Count 4.5 X10*3/uL (4.8-10.8)
== END 2025-05-23 11:37 | disposition home or self-care (01) ==
LOC: HO.LNP 11:36
PROVIDERS: Visit Provider Internal Medicine
DX: D72.820 Lymphocytosis (symptomatic) (principal)
CPT/HCPCS: 85025